=== PATIENT | male | born 1945 | race Caucasian/White ===

== ENCOUNTER → 2019-11-01 11:14 | Outpatient (CLI) | payer MEDICARE, SELFPAY ==
[2019-11-01 12:53] LABS: Absolute Lymphocyte Count 1.54 X10^3/uL (0.83-4.51); Absolute Neutrophil Count 4.2 X10^3/uL (2.0-7.7); Basophil# 0.05 X10^3/uL; Basophil% 0.8 % (0-1); Eosinophil# 0.16 X10^3/uL; Eosinophils% 2.5 % (0-5); Hematocrit 45.8 % (40-54); Lymphocyte # 1.54 X10^3/ul (4.0); Lymphocyte % 23.6 % (19-41); Mean Corp Hgb Conc 32.8 g/dL (32-36); Mean Corpuscular Volume 88.6 fL (80-94); Mean Platelet Vol. 9.5 fl (6.2-12.0); Monocyte# 0.54 X10^3/uL; Monocyte% 8.3 % (0-10); NRBC Flagged by Analyzer 0 % (0-5); Neutrophil # 4.19 X10^3/uL (2.7-7.7); Platelet Count 217 K/mm3 (150-450); RBC Distribution Width CV 13.3 % (11.6-14.6); RBC Distribution Width SD 43.7 fl (35.1-43.9); Red Blood Count 5.17 M/mm3 (4.6-6.2); White Blood Count 6.5 K/mm3 (4.4-11.0)
[2019-11-01 13:38] LABS: ALB/GLOB Ratio 1.1 RATIO (0.9-2.4); AST(SGOT) 24 U/L (15-37); Alanine Aminotransfer ALT/SGPT 28 U/L (16-61); Albumin, Serum 3.9 g/dL (3.2-5.0); Alkaline Phosphatase 96 U/L (45-117); Anion Gap 5 (5-15); BUN 22 mg/dL (7-18); BUN/Creat Ratio 20.6 RATIO (10-20); Calcium,Total 9.4 mg/dL (8.5-10.1); Chloride 104 mmol/L (98-107); Cholesterol 155 mg/dL (200); Creatinine, Serum 1.07 mg/dL (0.70-1.30); EST Glomerular Filtration Rate 72 mL/min (>60); Est Glom Filt Rate - Afr Amer 87 mL/min (>60); Globulin 3.6 g/dL (2.2-4.2); Glucose 91 mg/dL (74-106); High Density Lipoprotein 45 mg/dL; PSA,Total- Diagnostic 9.65 ng/mL (0.0-4.0); Potassium 4.7 mmol/L (3.5-5.1); Protein, Total 7.5 g/dL (6.4-8.2); Sodium Level 138 mmol/L (136-145); Thyroid Stim Hormone (TSH) 1.17 uIU/mL (0.358-3.74); Triglycerides 73 mg/dL; Very Low Density Lipoprotein 15 mg/dL (5-40)
== END ==
PROVIDERS: PCP Internal Medicine; Referring Provider Internal Medicine; Visit Provider Internal Medicine
DX: E78.5 Hyperlipidemia, unspecified (principal); I10 Essential (primary) hypertension; E03.9 Hypothyroidism, unspecified; R97.20 Elevated prostate specific antigen [PSA]; Z95.1 Presence of aortocoronary bypass graft
CPT/HCPCS: 36415; 80053; 80061; 84153; 84443; 85025

== ENCOUNTER → 2020-05-01 10:58 | Outpatient (CLI) | payer MEDICARE, SELFPAY ==
[2020-05-01 09:54] VITALS: BMI 27.9
[2020-05-01 12:07] LABS: Absolute Neutrophil Count 4.6 X10^3/uL (2.0-7.7); Basophil# 0.04 X10^3/uL; Basophil% 0.6 % (0-1); Eosinophil# 0.16 X10^3/uL; Eosinophils% 2.4 % (0-5); Hematocrit 47.2 % (40-54); Hemoglobin 14.9 g/dL (13.0-16.5); Lymphocyte % 18.3 % (19-41); Mean Corp Hgb Conc 31.6 g/dL (32-36); Mean Corpuscular Volume 88.7 fL (80-94); Mean Platelet Vol. 9.5 fl (6.2-12.0); Monocyte# 0.45 X10^3/uL; Monocyte% 6.9 % (0-10); NRBC Flagged by Analyzer 0 % (0-5); Neutrophil # 4.63 X10^3/uL (2.7-7.7); Neutrophil % 70.9 % (47-70); Platelet Count 218 K/mm3 (150-450); RBC Distribution Width CV 13.6 % (11.6-14.6); RBC Distribution Width SD 44.1 fl (35.1-43.9); Red Blood Count 5.32 M/mm3 (4.6-6.2); White Blood Count 6.5 K/mm3 (4.4-11.0)
[2020-05-01 12:23] LABS: Vitamin D,25 Hydroxy 32.8 ng/mL
[2020-05-01 12:36] LABS: AST(SGOT) 21 U/L (15-37); Alanine Aminotransfer ALT/SGPT 27 U/L (16-61); Albumin, Serum 3.7 g/dL (3.2-5.0); Alkaline Phosphatase 108 U/L (45-117); Anion Gap 4 (5-15); BUN 18 mg/dL (7-18); BUN/Creat Ratio 16.1 RATIO (10-20); Calcium,Total 9.2 mg/dL (8.5-10.1); Chloride 103 mmol/L (98-107); Cholesterol 170 mg/dL (200); Creatinine, Serum 1.12 mg/dL (0.70-1.30); EST Glomerular Filtration Rate 68 mL/min (>60); Est Glom Filt Rate - Afr Amer 82 mL/min (>60); Globulin 3.7 g/dL (2.2-4.2); Glucose 93 mg/dL (74-106); High Density Lipoprotein 42 mg/dL; Potassium 4.7 mmol/L (3.5-5.1); Protein, Total 7.4 g/dL (6.4-8.2); Sodium Level 140 mmol/L (136-145); Thyroid Stim Hormone (TSH) 4.87 uIU/mL (0.358-3.74); Triglycerides 108 mg/dL; Very Low Density Lipoprotein 22 mg/dL (5-40)
== END ==
PROVIDERS: PCP Internal Medicine; Referring Provider Internal Medicine; Visit Provider Internal Medicine
DX: E55.9 Vitamin D deficiency, unspecified (principal); I10 Essential (primary) hypertension; K44.9 Diaphragmatic hernia without obstruction or gangrene; R97.20 Elevated prostate specific antigen [PSA]; E78.5 Hyperlipidemia, unspecified; Z95.1 Presence of aortocoronary bypass graft; Z98.890 Other specified postprocedural states
CPT/HCPCS: 36415; 80053; 80061; 82306; 84153; 84443; 85025

== ENCOUNTER → 2020-06-19 14:16 | Outpatient (CLI) | payer MEDICARE, SELFPAY ==
[2020-05-01 09:54] VITALS: BMI 27.9
[2020-06-19 15:47] LABS: Free T3 2.5 pg/mL (2.18-3.98); Thyroid Stim Hormone (TSH) 1.97 uIU/mL (0.358-3.74)
== END ==
PROVIDERS: PCP Internal Medicine; Referring Provider Internal Medicine; Visit Provider Internal Medicine
DX: E03.9 Hypothyroidism, unspecified (principal)
CPT/HCPCS: 36415; 84439; 84443; 84481

== ENCOUNTER → 2020-10-30 10:32 | Outpatient (CLI) | payer MEDICARE, SELFPAY ==
[2020-10-30 12:05] LABS: Absolute Lymphocyte Count 1.41 X10^3/uL (0.83-4.51); Absolute Neutrophil Count 3.9 X10^3/uL (2.0-7.7); Basophil# 0.06 X10^3/uL; Eosinophil# 0.16 X10^3/uL; Eosinophils% 2.6 % (0-5); Hematocrit 48.4 % (40-54); Hemoglobin 15.2 g/dL (13.0-16.5); Lymphocyte # 1.41 X10^3/ul (0.83-4.51); Lymphocyte % 23.2 % (19-41); Mean Corp Hgb Conc 31.4 g/dL (32-36); Mean Corpuscular Hgb 27.7 pg (27.0-32.0); Mean Corpuscular Volume 88.3 fL (80-94); Mean Platelet Vol. 9.5 fl (6.2-12.0); Monocyte# 0.44 X10^3/uL; Monocyte% 7.2 % (0-10); NRBC Flagged by Analyzer 0 % (0-5); Neutrophil # 3.94 X10^3/uL (2.7-7.7); Neutrophil % 64.8 % (47-70); Platelet Count 221 K/mm3 (150-450); RBC Distribution Width CV 13.7 % (11.6-14.6); RBC Distribution Width SD 44.4 fl (35.1-43.9); Red Blood Count 5.48 M/mm3 (4.6-6.2); White Blood Count 6.1 K/mm3 (4.4-11.0)
[2020-10-30 12:33] LABS: ALB/GLOB Ratio 0.9 RATIO (0.9-2.4); AST(SGOT) 19 U/L (15-37); Alanine Aminotransfer ALT/SGPT 24 U/L (16-61); Albumin, Serum 3.5 g/dL (3.2-5.0); Alkaline Phosphatase 84 U/L (45-117); Anion Gap 4 (5-15); BUN 17 mg/dL (7-18); BUN/Creat Ratio 18.6 RATIO (10-20); Chloride 104 mmol/L (98-107); Cholesterol 157 mg/dL (200); Creatinine, Serum 0.92 mg/dL (0.70-1.30); EST Glomerular Filtration Rate 86 mL/min (>60); Est Glom Filt Rate - Afr Amer 104 mL/min (>60); Globulin 3.8 g/dL (2.2-4.2); Glucose 94 mg/dL (74-106); High Density Lipoprotein 47 mg/dL; PSA,Total- Diagnostic 8.92 ng/mL (0.0-4.0); Potassium 4.7 mmol/L (3.5-5.1); Protein, Total 7.3 g/dL (6.4-8.2); Sodium Level 138 mmol/L (136-145); Thyroid Stim Hormone (TSH) 3.08 uIU/mL (0.358-3.74); Triglycerides 76 mg/dL; Very Low Density Lipoprotein 15 mg/dL (5-40)
== END ==
PROVIDERS: PCP Internal Medicine; Referring Provider Internal Medicine; Visit Provider Internal Medicine
DX: I10 Essential (primary) hypertension (principal); E78.5 Hyperlipidemia, unspecified; R97.20 Elevated prostate specific antigen [PSA]
CPT/HCPCS: 36415; 80053; 80061; 84153; 84443; 85025

== ENCOUNTER 2021-05-07 09:58 | Outpatient (CLI) | payer MEDICARE, SELFPAY ==
[2021-05-07 12:08] LABS: Absolute Neutrophil Count 3.7 X10^3/uL (2.0-7.7); Basophil# 0.05 X10^3/uL; Basophil% 0.8 % (0-1); Eosinophil# 0.14 X10^3/uL; Eosinophils% 2.4 % (0-5); Hematocrit 47.3 % (40-54); Hemoglobin 15.3 g/dL (13.0-16.5); Lymphocyte % 25.3 % (19-41); Mean Corp Hgb Conc 32.3 g/dL (32-36); Mean Corpuscular Hgb 28.5 pg (27.0-32.0); Mean Corpuscular Volume 88.1 fL (80-94); Mean Platelet Vol. 9.5 fl (6.2-12.0); Monocyte# 0.49 X10^3/uL; Monocyte% 8.3 % (0-10); NRBC Flagged by Analyzer 0 % (0-5); Neutrophil # 3.71 X10^3/uL (2.7-7.7); Neutrophil % 62.7 % (47-70); Platelet Count 230 K/mm3 (150-450); Red Blood Count 5.37 M/mm3 (4.6-6.2); White Blood Count 5.9 K/mm3 (4.4-11.0)
[2021-05-07 12:34] LABS: Vitamin D,25 Hydroxy 29.5 ng/mL
[2021-05-07 12:50] LABS: ALB/GLOB Ratio 1.1 RATIO (0.9-2.4); AST(SGOT) 23 U/L (15-37); Alanine Aminotransfer ALT/SGPT 28 U/L (16-61); Albumin, Serum 3.8 g/dL (3.2-5.0); Alkaline Phosphatase 91 U/L (45-117); Anion Gap 4 (5-15); BUN 25 mg/dL (7-18); BUN/Creat Ratio 19.2 RATIO (10-20); Calcium,Total 9.5 mg/dL (8.5-10.1); Chloride 104 mmol/L (98-107); Cholesterol 147 mg/dL (200); EST Glomerular Filtration Rate 57 mL/min (>60); Est Glom Filt Rate - Afr Amer 69 mL/min (>60); Globulin 3.5 g/dL (2.2-4.2); Glucose 95 mg/dL (74-106); High Density Lipoprotein 41 mg/dL; PSA,Total- Diagnostic 9.61 ng/mL (0.0-4.0); Potassium 4.9 mmol/L (3.5-5.1); Protein, Total 7.3 g/dL (6.4-8.2); Sodium Level 138 mmol/L (136-145); Triglycerides 76 mg/dL; Very Low Density Lipoprotein 15 mg/dL (5-40)
== END 2021-05-07 23:59 | disposition home or self-care (01) ==
LOC: BIMLAB 09:58
PROVIDERS: PCP Internal Medicine; Referring Provider Internal Medicine; Visit Provider Internal Medicine
DX: I10 Essential (primary) hypertension (principal); E78.5 Hyperlipidemia, unspecified; R97.20 Elevated prostate specific antigen [PSA]; E55.9 Vitamin D deficiency, unspecified; Z95.1 Presence of aortocoronary bypass graft; Z98.890 Other specified postprocedural states
CPT/HCPCS: 36415; 80053; 80061; 82306; 84153; 84443; 85025

== ENCOUNTER → 2021-11-11 | Outpatient (CLI) | payer MEDICARE, SELFPAY ==
[2021-11-11 10:49] LABS: Absolute Lymphocyte Count 1.49 X10^3/uL (0.83-4.51); Absolute Neutrophil Count 3.5 X10^3/uL (2.0-7.7); Basophil# 0.04 X10^3/uL; Basophil% 0.7 % (0-1); Eosinophil# 0.26 X10^3/uL; Eosinophils% 4.4 % (0-5); Hematocrit 46.4 % (40-54); Lymphocyte # 1.49 X10^3/ul (0.83-4.51); Lymphocyte % 25.2 % (19-41); Mean Corp Hgb Conc 32.3 g/dL (32-36); Mean Corpuscular Hgb 28.8 pg (27.0-32.0); Mean Corpuscular Volume 89.2 fL (80-94); Mean Platelet Vol. 9.9 fl (6.2-12.0); Monocyte# 0.55 X10^3/uL; Monocyte% 9.3 % (0-10); NRBC Flagged by Analyzer 0 % (0-5); Neutrophil # 3.54 X10^3/uL (2.7-7.7); Neutrophil % 59.9 % (47-70); Platelet Count 220 K/mm3 (150-450); RBC Distribution Width SD 45.3 fl (35.1-43.9); White Blood Count 5.9 K/mm3 (4.4-11.0)
[2021-11-11 11:27] LABS: ALB/GLOB Ratio 1.1 RATIO (0.9-2.4); AST(SGOT) 23 U/L (15-37); Alanine Aminotransfer ALT/SGPT 24 U/L (16-61); Albumin, Serum 3.7 g/dL (3.2-5.0); Alkaline Phosphatase 79 U/L (45-117); Anion Gap 5 (5-15); BUN 20 mg/dL (7-18); BUN/Creat Ratio 18.3 RATIO (10-20); Calcium,Total 9.3 mg/dL (8.5-10.1); Chloride 105 mmol/L (98-107); Cholesterol 160 mg/dL (200); Creatinine, Serum 1.09 mg/dL (0.70-1.30); EST Glomerular Filtration Rate 70 mL/min (>60); Est Glom Filt Rate - Afr Amer 85 mL/min (>60); Free T3 2.5 pg/mL (2.18-3.98); Globulin 3.5 g/dL (2.2-4.2); Glucose 91 mg/dL (74-106); High Density Lipoprotein 45 mg/dL; Potassium 4.5 mmol/L (3.5-5.1); Protein, Total 7.2 g/dL (6.4-8.2); Sodium Level 140 mmol/L (136-145); T4 Free Direct 1.35 ng/dL (0.76-1.46); Thyroid Stim Hormone (TSH) 2.32 uIU/mL (0.358-3.74); Triglycerides 73 mg/dL; Very Low Density Lipoprotein 15 mg/dL (5-40)
== END | disposition home or self-care (01) ==
PROVIDERS: PCP Internal Medicine; Visit Provider Internal Medicine
DX: I10 Essential (primary) hypertension (principal); I38 Endocarditis, valve unspecified; E78.5 Hyperlipidemia, unspecified; E03.9 Hypothyroidism, unspecified; Z95.1 Presence of aortocoronary bypass graft
CPT/HCPCS: 36415; 80053; 80061; 84439; 84443; 84481; 85025

== ENCOUNTER → 2022-05-06 | Outpatient (CLI) | payer MEDICARE, SELFPAY ==
[2022-05-06 11:31] LABS: Absolute Lymphocyte Count 1.76 X10^3/uL (0.83-4.51); Absolute Neutrophil Count 3.8 X10^3/uL (2.0-7.7); Basophil# 0.05 X10^3/uL; Basophil% 0.8 % (0-1); Eosinophil# 0.23 X10^3/uL; Eosinophils% 3.6 % (0-5); Hemoglobin 14.9 g/dL (13.0-16.5); Lymphocyte # 1.76 X10^3/ul (0.83-4.51); Lymphocyte % 27.5 % (19-41); Mean Corp Hgb Conc 32.4 g/dL (32-36); Mean Corpuscular Hgb 28.6 pg (27.0-32.0); Mean Corpuscular Volume 88.3 fL (80-94); Mean Platelet Vol. 9.2 fl (6.2-12.0); Monocyte# 0.51 X10^3/uL; NRBC Flagged by Analyzer 0 % (0-5); Neutrophil # 3.81 X10^3/uL (2.7-7.7); Neutrophil % 59.3 % (47-70); Platelet Count 213 K/mm3 (150-450); RBC Distribution Width CV 13.3 % (11.6-14.6); RBC Distribution Width SD 43.4 fl (35.1-43.9); Red Blood Count 5.21 M/mm3 (4.6-6.2); White Blood Count 6.4 K/mm3 (4.4-11.0)
[2022-05-06 12:10] LABS: Vitamin D,25 Hydroxy 29.4 ng/mL
[2022-05-06 12:18] LABS: ALB/GLOB Ratio 1.1 RATIO (0.9-2.4); AST(SGOT) 23 U/L (15-37); Alanine Aminotransfer ALT/SGPT 27 U/L (16-61); Albumin, Serum 3.7 g/dL (3.2-5.0); Alkaline Phosphatase 85 U/L (45-117); Anion Gap 4 (5-15); BUN 20 mg/dL (7-18); BUN/Creat Ratio 17.9 RATIO (10-20); Calcium,Total 9.3 mg/dL (8.5-10.1); Chloride 107 mmol/L (98-107); Cholesterol 162 mg/dL (200); Creatinine, Serum 1.12 mg/dL (0.70-1.30); EST Glomerular Filtration Rate 68 mL/min (>60); Est Glom Filt Rate - Afr Amer 82 mL/min (>60); Free T3 2.3 pg/mL (2.18-3.98); Globulin 3.5 g/dL (2.2-4.2); Glucose 101 mg/dL (74-106); High Density Lipoprotein 47 mg/dL; PSA,Total - Annual Screen 9.89 ng/mL (0.00-4.00); Potassium 4.7 mmol/L (3.5-5.1); Protein, Total 7.2 g/dL (6.4-8.2); Sodium Level 142 mmol/L (136-145); T4 Free Direct 1.23 ng/dL (0.76-1.46); Thyroid Stim Hormone (TSH) 2.59 uIU/mL (0.358-3.74); Triglycerides 65 mg/dL; Very Low Density Lipoprotein 13 mg/dL (5-40)
== END | disposition home or self-care (01) ==
LOC: LAB 11:08
PROVIDERS: PCP Internal Medicine; Referring Provider Internal Medicine; Visit Provider Internal Medicine
DX: I38 Endocarditis, valve unspecified (principal); E03.9 Hypothyroidism, unspecified; E55.9 Vitamin D deficiency, unspecified; Z95.1 Presence of aortocoronary bypass graft; Z95.2 Presence of prosthetic heart valve; Z12.5 Encounter for screening for malignant neoplasm of prostate
CPT/HCPCS: 36415; 80053; 80061; 82306; 84153; 84439; 84443; 84481; 85025; G0103

== ENCOUNTER → 2023-05-19 | Outpatient (CLI) | payer MEDICARE, SELFPAY ==
[2023-05-19 11:09] LABS: Absolute Lymphocyte Count 1.41 X10^3/uL (0.83-4.51); Absolute Neutrophil Count 3.2 X10^3/uL (2.0-7.7); Basophil# 0.05 X10^3/uL; Basophil% 0.9 % (0-1); Eosinophil# 0.19 X10^3/uL; Eosinophils% 3.6 % (0-5); Hemoglobin 14.4 g/dL (13.0-16.5); Lymphocyte # 1.41 X10^3/ul (0.83-4.51); Lymphocyte % 26.7 % (19-41); Mean Corp Hgb Conc 31.3 g/dL (32-36); Mean Corpuscular Volume 86.1 fL (80-94); Mean Platelet Vol. 9.2 fl (6.2-12.0); Monocyte% 7.6 % (0-10); NRBC Flagged by Analyzer 0 % (0-5); Neutrophil # 3.19 X10^3/uL (2.7-7.7); Neutrophil % 60.3 % (47-70); Platelet Count 213 K/mm3 (150-450); RBC Distribution Width SD 44.3 fl (35.1-43.9); Red Blood Count 5.34 M/mm3 (4.6-6.2); White Blood Count 5.3 K/mm3 (4.4-11.0)
[2023-05-19 11:45] LABS: Vitamin D,25 Hydroxy 26.3 ng/mL
[2023-05-19 11:51] LABS: AST(SGOT) 20 U/L (15-37); Alanine Aminotransfer ALT/SGPT 17 U/L (16-61); Albumin, Serum 3.6 g/dL (3.2-5.0); Alkaline Phosphatase 82 U/L (45-117); Anion Gap 3 (5-15); BUN 21 mg/dL (7-18); BUN/Creat Ratio 19.1 RATIO (10-20); Calcium,Total 8.8 mg/dL (8.5-10.1); Chloride 107 mmol/L (98-107); Cholesterol 294 mg/dL (200); EST Glomerular Filtration Rate 69 mL/min (>60); Est Glom Filt Rate - Afr Amer 83 mL/min (>60); Free T3 2.2 pg/mL (2.18-3.98); Globulin 3.5 g/dL (2.2-4.2); Glucose 92 mg/dL (74-106); High Density Lipoprotein 44 mg/dL; Potassium 4.2 mmol/L (3.5-5.1); Protein, Total 7.1 g/dL (6.4-8.2); Sodium Level 140 mmol/L (136-145); T4 Free Direct 1.26 ng/dL (0.76-1.46); Thyroid Stim Hormone (TSH) 6.28 uIU/mL (0.358-3.74); Triglycerides 115 mg/dL; Very Low Density Lipoprotein 23 mg/dL (5-40)
== END | disposition home or self-care (01) ==
LOC: LAB 10:49
PROVIDERS: PCP Internal Medicine; Referring Provider Internal Medicine; Visit Provider Internal Medicine
DX: I10 Essential (primary) hypertension (principal); E03.9 Hypothyroidism, unspecified; E55.9 Vitamin D deficiency, unspecified; Z95.2 Presence of prosthetic heart valve; Z98.890 Other specified postprocedural states; Z12.5 Encounter for screening for malignant neoplasm of prostate
CPT/HCPCS: 36415; 80053; 80061; 82306; 84153; 84439; 84443; 84481; 85025; G0103

== ENCOUNTER → 2023-11-23 | Outpatient (CLI) | payer MEDICARE, SELFPAY ==
[2023-11-23 09:50] LABS: Absolute Lymphocyte Count 1.45 X10^3/uL (0.83-4.51); Basophil# 0.05 X10^3/uL; Eosinophil# 0.16 X10^3/uL; Eosinophils% 3.1 % (0-5); Hematocrit 45.9 % (40-54); Hemoglobin 14.5 g/dL (13.0-16.5); Lymphocyte # 1.45 X10^3/ul (0.83-4.51); Lymphocyte % 28.2 % (19-41); Mean Corp Hgb Conc 31.6 g/dL (32-36); Mean Corpuscular Hgb 27.1 pg (27.0-32.0); Mean Corpuscular Volume 85.8 fL (80-94); Mean Platelet Vol. 9.2 fl (6.2-12.0); Monocyte# 0.49 X10^3/uL; Monocyte% 9.5 % (0-10); NRBC Flagged by Analyzer 0 % (0-5); Neutrophil # 2.96 X10^3/uL (2.7-7.7); Neutrophil % 57.4 % (47-70); Platelet Count 213 K/mm3 (150-450); RBC Distribution Width CV 13.9 % (11.6-14.6); RBC Distribution Width SD 43.5 fl (35.1-43.9); Red Blood Count 5.35 M/mm3 (4.6-6.2); White Blood Count 5.2 K/mm3 (4.4-11.0)
[2023-11-23 10:09] LABS: Vitamin D,25 Hydroxy 34.7 ng/mL
[2023-11-23 11:13] LABS: ALB/GLOB Ratio 1.1 RATIO (0.9-2.4); AST(SGOT) 18 U/L (15-37); Alanine Aminotransfer ALT/SGPT 13 U/L (16-61); Albumin, Serum 3.5 g/dL (3.2-5.0); Alkaline Phosphatase 76 U/L (45-117); Anion Gap 6 (5-15); BUN 24 mg/dL (7-18); BUN/Creat Ratio 21.1 RATIO (10-20); Calcium,Total 9.1 mg/dL (8.5-10.1); Chloride 105 mmol/L (98-107); Cholesterol 280 mg/dL (200); Creatinine, Serum 1.14 mg/dL (0.70-1.30); EST Glomerular Filtration Rate 66 mL/min (>60); Est Glom Filt Rate - Afr Amer 80 mL/min (>60); Free T3 2.2 pg/mL (2.18-3.98); Globulin 3.3 g/dL (2.2-4.2); Glucose 101 mg/dL (74-106); High Density Lipoprotein 41 mg/dL; Potassium 4.3 mmol/L (3.5-5.1); Protein, Total 6.8 g/dL (6.4-8.2); Sodium Level 138 mmol/L (136-145); T4 Free Direct 1.29 ng/dL (0.76-1.46); Triglycerides 91 mg/dL; Very Low Density Lipoprotein 18 mg/dL (5-40)
== END | disposition home or self-care (01) ==
LOC: LABSPEC 09:04
PROVIDERS: PCP Internal Medicine; Referring Provider Internal Medicine; Visit Provider Internal Medicine
DX: E03.9 Hypothyroidism, unspecified (principal); I38 Endocarditis, valve unspecified; I10 Essential (primary) hypertension; E78.5 Hyperlipidemia, unspecified; E55.9 Vitamin D deficiency, unspecified; N40.0 Benign prostatic hyperplasia without lower urinary tract symptoms; Z95.1 Presence of aortocoronary bypass graft
CPT/HCPCS: 36415; 80053; 80061; 82306; 84153; 84439; 84443; 84481; 85025

== ENCOUNTER 2023-12-21 06:41 | Day surgery (SDC) | payer MEDICARE, SELFPAY ==
--- NOTE | 2023-12-20 | ESO_PTH ---
PATHOLOGY RESULTS PATIENT: MATHEW VIERA LOC: EN U#:[id number] AGE/SX: 78/M ROOM: RE12/21/[address]: Dr. Meng Kong DO : 1945 BED: DIS: 12/21/2023 SPEC #: [id number] RECD: 12/21/23 12:28 STATUS: MARY REJennifer #: [id number] GREGG: 12/20/23 00:[address]: Meng Kong DEPT: SURGICAL PATHOLOGY RECD BY: Calos Ledesma ENTERED: 12/21/23 12:28 SP TYPE: JOSELINE DORAN DR: Dr. Lucretia Ortiz MD Tissues: Esophagus, NOS Procedures: Special Stain Group I Surgery Specimen Level IV Alcian Blue/PAS (control) HEADER OPERATION: EGD with biopsy, dilatation PRE-OP DIAGNOSIS: Benign esophageal stricture TISSUE SUBMITTED: Distal esophagus biopsy MICROSCOPIC DIAGNOSIS Distal esophagus, biopsy: Fragments of gastroesophageal mucosa with chronic inflammation. Intestinal metaplasia (goblet cell metaplasia) not identified. See comment. 12/22/2023 COMMENT Alcian blue/PAS stain with matched control is used in the evaluation of the specimen. MICROSCOPIC DESCRIPTION Slides are reviewed. GROSS DESCRIPTION Received in fixative is one container labeled with the patient's name and designated Distal esophagus biopsy. The specimen consists of multiple irregular fragments of light hall soft tissue that in aggregate measure 1.5 x 0.4 x 0.1 cm. The specimen is totally submitted in one cassette. 12/21/2023 TC:3 CPT:91612 ,[id number]
[2023-12-21] VITALS (8 sets, daily range): BP systolic 88–155; BP diastolic 61–72; PULSE 61–66; RESP 16–18; TEMP 36.1–36.4; O2SAT 93–97; BMI 29.0
--- OUTSIDE RECORDS SUMMARY | 2023-12-21 06:43 | XMS RPT_ITS | CCD ---
Author Organization [facility] Care Team Providers Care Salt Manager Name Role Phone GONZÁLEZ HARMON M A Unavailable Unavailable GONZÁLEZ HARMON A Unavailable Unavailable SUYAPA HU Unavailable Unavailable TRISTEN BUTLER Primary Care Unavailab TRISTEN Awan Referring Unavailab natalee PROVIDER, UNKNOWN Admitting Unavailable PROVIDER, UNKNOWN Attending Unavailable Tristen Butler MD Primary Care Provider Tristen Butler MD Primary Care Provider Shahnaz Sequeira MD Primary Care Provider [phone] Emelia Krause MDabh Unavailable Jimi GARCIA, Ralf(Historical) Unavailable Anoop GARCIA, Bony Unavailable Anoop GARCIA, Bony Unavailable Jo Ann Oliva MD Unavailable [phone] SHAHNAZ SEQUEIRA Primary Care Unavailable HALEY BUTTS Attending Unavailable SHAHNAZ SEQUEIRA Primary Care Unavailable HALEY BUTTS Referring Unavailable SHAHNAZ SEQUEIRA Consulting Unavailable JO ANN OLIVA MD Attending UnavailJO ANN Cespedes MD Primary Care UnavailJO ANN Cespedes MD Admitting Unavailabl e PROVIDER, UNKNOWN Consulting Unavailable Allergies Allergy Classification Reported Allergen(s) Allergy Type Date of Onset Reaction(s) Facility (7 sources) Penicillins; Translations: [PENICILLINS] Propensity to adverse reactions to drug (disorder) 0 Hives [facility] Repository (1 source) Penicillin Drug Allergy [facility] Repository Medications Current Medications Medication Drug Class(es) Dates Sig (Normalized) Sig (Original) aspirin 81 mg oral tablet (5 sources) Platelet Aggregation Inhibitor, Nonsteroidal Anti-inflammatory Drug take 1 tablet by mouth once daily aspirin 81 MG tablet Indications: Aortic root dilation (HCC) , Ascending aortic aneurysm (HCC) Take 81 mg by mouth daily. 0 Active take 1 tablet by mouth once gonzalez y aspirin, enteric coated (ASPIR-81) 81 mg EC tablet Take 81 mg by mouth once daily. 0 Active Comment on above: Take 81 mg by mouth once daily. hydroCHLOROthiazide 25 mg oral tablet (3 sources) Thiazide Diuretic Start: 2016 take 1 tablet by mouth once daily hydrochlorothiazide (HYDRODIURIL) 25 MG tablet TAKE 1 TABLET BY MOUTH DAILY. 90 Tablet 2 10/24/2016 Active losartan potassium 50 mg oral tablet (5 sources) Angiotensin 2 Receptor Joann Start: 2016 take 1 tablet by mouth once daily losartan (COZAAR) 50 MG tablet Indications: Aortic root dilation (HCC) , Ascending aortic aneurysm (HCC) Take 1 Tablet by mouth daily. 30 Tablet 3 12/06/2016 Active take 1 tablet by mouth once gonzalez y losartan (COZAAR) 25 mg tablet Take 25 mg by mouth once daily. 0 Active Comment on above: Take 25 mg by mouth once daily. 24 hr metoprolol succinate 25 mg extended release oral tablet (5 sources) beta-Adrenergic Joann Start: 12-06-2016 take 1 tablet by mouth once daily metoprolol XL (TOPROL XL) 25 MG XL tablet Indications: Aortic root dilation (HCC) , Ascending aortic aneurysm (HCC) Take 1 Tablet by mouth daily. 30 Tablet 11 12/06/2016 Active take 1 tablet by mouth twice vince ly metoprolol tartrate, short acting, (LOPRESSOR) 25 mg tablet Take 25 mg by mouth twice daily. 0 Active Comment on above: Take 25 mg by mouth twice daily. perflutren lipid microspheres 1.3 mL in NaCl (PF) 0.9% 10 mL injection (DEFINITY) (2 sources) Start: 3 End: 4 perflutren lipid microspheres 1.3 mL in NaCl (PF) 0.9% 10 mL injection (DEFINITY) rosuvastatin calcium 40 mg oral tablet (5 sources) HMG-CoA Reductase Inhibitor Start: 7 take 1 tablet by mouth once daily rosuvastatin (CRESTOR) 40 MG tablet Indications: Hyperlipidemia, unspecified hyperlipidemia type Take 1 Tablet by mouth daily. 30 Tablet 11 12/06/2016 Active take 1 tablet by mouth once gonzalez y rosuvastatin (CRESTOR) 10 mg tablet Take 10 mg by mouth once daily. 0 Active Comment on above: Take 10 mg by mouth once daily. 125 ml sodium chloride 9 mg/ml prefilled syringe (2 sources) Start: 06-07-2022 End: 09-06-2023 sodium chloride 0.9 % (flush) 10 mL (BD POSIFLUSH) Completed/Discontinued Medications Medication Drug Class(es) Dates Sig (Normalized) Sig (Original) atorvastatin 40 mg oral tablet (2 sources) HMG-CoA Reductase Inhibitor take 1 tablet by mouth once daily at bedtime atorvastatin (LIPITOR) 40 mg tablet Take 40 mg by mouth daily at bedtime. 0 Active Comment on above: Take 40 mg by mouth daily at bedtime. levothyroxine sodium 0.125 mg oral tablet (8 sources) l-Thyroxine Start: 03-17-2017 take 1 tablet by mouth once daily levothyroxine (SYNTHROID) 125 mcg tablet Take 1 tablet by mouth once daily. 30 tablet 1 03/17/2017 Active Start: 12-21-2016 take 1 tablet by sam th once daily levothyroxine (SYNTHROID, LEVOTHROID) 112 MCG tablet TAKE 1 TABLET BY MOUTH DAILY. 90 Tablet 1 12/21/2016 Active Start: 11-12-2016 take 1 tablet by sam th once daily levothyroxine (SYNTHROID) 100 MCG tablet Take 1 Tablet by mouth daily. 90 Tablet 3 11/12/2016 Active Comment on above: Take 1 tablet by sam th once daily. nitroglycerin 0.3 mg sublingual tablet (2 sources) Nitrate Vasodilator nitroglyceri n sublingual (NITROSTAT) 0.3 mg SL tablet Dissolve 0.3 mg under the tongue every 5 minutes as needed. 0 Active Comment on above: Dissolve 0.3 mg unde r the tongue every 5 minutes as needed. ubidecarenone (CO Q-10 ORAL) (2 sources) ubidecarenone (C O Q-10 ORAL) Take by mouth. 0 Active Comment on above: Take by mouth. warfarin sodium 4 mg oral tablet (2 sources) Vitamin K Antagonist warfarin (C OUMADIN) 4 mg tablet Take 4 mg by mouth as directed. 0 Active Comment on above: Take 4 mg by mouth a s directed. Problems Active Problems Problem Classification Problem Date Documented Da te Episodic/Chronic Aortic; peripheral; and visceral artery aneurysms (7 sources) Aortic root dilatation; Translations: [Thoracic aortic ectasia] Onset: 06-07-2016 06-07-2016 Chronic Conduction disorders (2 sources) Heart block ; Translations: [Conduction disorder, unspecified] Onset: 03-08-2017 03-17-2017 Chronic Coronary atherosclerosis and other heart disease (3 sources) Coronary arteriosclerosis; Translations: [Atherosclerotic heart disease of [place] coronary artery without angina pectoris] Onset: 03-08-2017 03-17-2017 Chronic Coronary atherosclerosis and other heart disease (1 source) Presence of aortocoronary bypass graft; Translations: [S/P CABG x 2] Onset: 09-17-2022 Episodic Disorders of lipid metabolism (5 sources) Hyperlipidemia; Translations: [Hyperlipidemia, unspecified] Onset: 12-08-1999 05-17-2016 Chronic Essential hypertension (3 sources) Essential hypertension; Translations: [Essential (primary) hypertension] Onset: 03-08-2016 03-08-2016 Chronic Heart valve disorders (6 sources) Aortic valve regurgitation; Translations: [Nonrheumatic aortic (valve) insufficiency] Onset: 12-06-2011 04-09-2021 Chronic Other circulatory disease (1 source) Personal history of other diseases of the circulatory system; Translations: [S/P ascending aortic aneurysm repair] Onset: 09-17-2022 Episodic Residual codes; unclassified (2 sources) History of repair of aortic root; Translations: [Other specified postprocedural states] Episodic Residual codes; unclassified (2 sources) History of repair of ascending aorta; Translations: [Other specified postprocedural states] Episodic Residual codes; unclassified (2 sources) Other specified postprocedural states; Translations: [H/O aortic root repair] Onset: 09-17-2022 Episodic Thyroid disorders (5 sources) Hypothyroidism; Translations: [Hypothyroidism, unspecified] Onset: 12-08-1999 12-15-2016 Chronic Unclassified (1 source) Unknown / UNK(Unknown) Onset: 09-02-2016 Unclassified (2 sources) Transition of care; Translations: [Transition of care performed with sharing of clinical summary] Onset: 03-14-2017 03-17-2017 Unclassified (1 source) Aneurysm of ascending aorta without rupture (HCC); Translations: [Aneurysm of ascending aorta without rupture (HCC)] Onset: 03-17-2017 Past or Other Problems Problem Classification Problem Date Documented Date Episodic/Chronic Acute and unspecified renal failure (2 sources) Acute injury of kidney; Translations: [Acute kidney failure, unspecified] Onset: 03-12-2017 03-17-2017 Episodic Administrative/social admission (2 sources) Discharge status; Translations: [Encounter for administrative examinations, unspecified] Onset: 03-07-2017 03-17-2017 Episodic Complications of surgical procedures or medical care (2 sources) Iatrogenic hypotension; Translations: [Postprocedural hypotension] Onset: 03-08-2017 03-17-2017 Episodic Fluid and electrolyte disorders (2 sources) Hypervolemia; Translations: [Fluid overload, unspecified] Onset: 03-12-2017 03-17-2017 Episodic Other screening for suspected conditions (not mental disorders or infectious disease) (3 sources) Raised prostate specific antigen; Translations: [Elevated prostate specific antigen [PSA]] Onset: 05-30-2003 05-30-2003 Episodic Vee-; endo-; and myocarditis; cardiomyopathy (except that caused by tuberculosis or sexually transmitted disease) (3 sources) Diastolic murmur; Translations: [Endocarditis, valve unspecified] Onset: 11-12-2011 Resolved: 11-12-2016 11-12-2016 Chronic Unclassified (1 source) BRADYCARDIA, COMPLETE HEART BLOCK Onset: 09-02-2016 Unclassified (3 sources) NUTRITION/FUNCTIONAL SCREEN COMPLETED Onset: 12-18-1999 Resolved: 06-16-2001 06-16-2001 Results Test Name Value Interpretation Reference Range Facility CV ECHO [facility] CV ECHO [place] [address] Patient: MATHEW VIERA Phone#: : 1945 Age: 78 Gender: M Pt. Type: Out Account: [id number] Location: [facility] Ordering: JO ANN OLIVA Exam Date: 09/02/2023/8:06 Family Phys: SHAHNAZ SEQUEIRA Charge Code: [id number] Physician: Gordon Order #: [id number] Dose#: PROCEDURE: ECHOCARDIOGRAM WITH DOPPLER AND COLOR FLOW HISTORY: Patient is a 78-year-old male with aortic valve replacement INDICATIONS: asymmetric aseptal hypertrophy COMPARISON: None. TECHNIQUE: A 2-D ultrasound, color spectral Doppler and M-mode evaluation of the heart and great vessels. PATIENT MEASUREMENTS: Height (in.): 67 BSA: 1.89 Weight (lbs.): 170 BP: 165/99 [employer] Inspector: JAYNE M MODE 2D MEASUREMENTS AND CALCULATIONS: LVIDd: 4.35 cm LVIDs: 2.46 cm IVSd: 1.4 cm LVPWd: 1.15 cm LVOT diam: 2.61 cm FS: 43.34 % Ao Root diam: 2.94 cm LA diam: 4.5 cm LA Volume Index: 48.3 ml/m2 LA A4 Area: 27.61 cm2 RA A4 Area: 21.7 cm2 RVDd: 4.83 cm TAPSE: DOPPLER MEASUREMENTS AND CALCULATIONS MITRAL MV E MAX bob: 0.50 m/s MV A MAX bob: 0.57 m/s MV E-A ratio: 0.88 Lat Peak E' Bob 7 cm/sec Septal Peak E' OBB 5 cm/sec E/E' lateral 7.04 E/E' medial 9.5 Continued Report - Page 2 of 3 Patient: MATHEW VIERA Phone#: : 1945 Age: 78 Gender: M Pt. Type: Out Account: [id number] Location: [facility] Ordering: JO ANN OLIVA Exam Date: 09/02/2023/8:06 Family Phys: SHAHNAZ SEQUEIRA Charge Code: [id number] Physician: Gordon Order #: [id number] Dose#: AORTIC Ao V2 max: 1.62 m/s Ao max P.47 mm[Hg] Ao V2 mean: 1.10 m/s Ao mean P.71 mm[Hg] Ao V2 VTI: 35.72 cm JOSS (V Max): 3.11 cm2 JOSS (VTI): 3.12 cm2 LV V1 Max 0.94 m/s LV V1 Max PG 3.56 mm[Hg] LV V1 Mean PG 2.02 mm[Hg] LV V1 mean 0.66 m/s LV V1 VTI 20.93 cm PULMONIC PA V2 Max 0.84 m/s PA Max PG 2.83 mm[Hg] TRICUSPID TR Max Bob 2.22 m/s TR max PG 19.74 mm[Hg] RVSP 23 mm Hg. 2D/M-MODE AND COLOR FLOW LEFT VENTRICLE: There is asymmetric basal septal hypertrophy. Left ventricle is normal in size. Systolic ejection fraction is 55-60%. There are no regional wall motion abnormality seen. Basal anterior wall are inadequately visualized WALL MOTION: 1 - Basal anterior: 7 - Mid anterior: Normal 13 - Apical anterior: Normal. 2 - Basal anteroseptal: Normal. 8 - Mid anteroseptal: Normal. 14 - Apical septal: Normal. 3 - Basal inferoseptal: Normal. 9 - Mid inferoseptal: Normal. 15 - Apical inferior: Normal. 4 - Basal inferior: Normal. 10-Mid inferior: Normal. 16 - Apical lateral: Normal. 5 - Basal inferolateral: Normal. 11-Mid inferolateral: Normal. 6 - Basal anterolateral: Normal. 12-Mid anterolateral: Normal. RIGHT VENTRICLE: Right ventricle is mildly enlarged with mildly reduced systolic function. LEFT ATRIUM: Left atrium is moderately enlarged. RIGHT ATRIUM: Right atrium is mildly enlarged. ATRIAL SEPTUM: There is no large interatrial shunt seen. PFO was not assessed. MITRAL VALVE: Mitral valve appears normal in structure. There is mild regurgitation and no stenosis seen. TRICUSPID VALVE: Tricuspid valve is normal structure. There is mild to moderate regurgitation and no stenosis seen Continued Report - Page 3 of 3 Patient: MATHEW VIERAJaylon Phone#: : 1945 Age: 78 Gender: M Pt. Type: Out Account: [id number] Location: 062 Ordering: JO ANN OLIVA Exam Date: 09/02/2023/8:06 Family Phys: SHAHNAZ SEQUEIRA Charge Code: [id number] Physician: Gordon Order #: [id number] Dose#: AORTIC VALVE: There is a well-seated bioprosthetic aortic valve seen. There is no prosthetic valve regurgitation or stenosis seen PULMONIC VALVE: Pulmonic valve is normal in structure. There is trivial regurgitation and no stenosis seen AORTIC ROOT: Aortic root is normal in size AORTIC ARCH: Inadequately visualized DESC THORACIC AORTA: Inadequately visualized. Doppler shows normal systolic diastolic flow IVC/SVC: IVC is normal in size with more than 50% collapse of inspiration. Estimated atrial pressure is 3 mm Hg. PULMONARY VEINS: There is systolic flow blunting seen. PERICARDIUM: There is no pericardial effusion CONCLUSION: 1. There is asymmetric basal septal hypertrophy seen. Left ventricle is normal in size. Systolic ejection fraction 55-60% with normal wall motion 2. Left atrium is moderately enlarged. Right atrium is mildly enlarged 3. There is mild mitral valve regurgitation seen 4. There is mild to moderate tricuspid valve regurgitation 5. There is a well-seated bioprosthetic aortic valve seen. There is no prosthetic valve stenosis or regurgitation seen. 6. Right ventricle is mildly enlarged with mildly reduced systolic function. 7. Estimated right ventricular systolic (more content not included)... Normal [facility] CNOVon 09-17-2022 [facility] Office Visit (TOMN ) MATHEW VIERA ([id number]) 1945 M Date Time Provider Department 09/17/22 1:30 PM HALEY BUTTS [facility] During your visit today, we recorded the following information about you: Temperature Pulse Blood pressure Weight 98.6 degrees 59/minute 158/86 79.3 kg Height 1.702 m Haley Butts APRN.[facility] 10/11/2022 12:24 PM Signed FOLLOW-UP Aortic Aneurysm and Aortic Repair Patient Type: Established PCP: Shahnaz Sequeira [address] [address] Other Physician: No referring provider defined for this encounter. Patient Mr. Viera returns, now 4 years following the last assessment of his ascending and aortic root Aortic Aneurysm. The patient is asymptomatic. The Echocardiogram reveals normal ventricular function and well functioning valves, including AVR 03/08/2017-- Dr Stone Median sternotomy, aortic root replacement, reimplantation of the coronary arteries and valve replacement with a 29-mm Antonio-Vieira bioprosthesis and a 32-mm Valsalva graft and ascending replacement with a 32-mm Valsalva graft, coronary artery bypass grafting x2 with left internal thoracic artery and left anterior descending artery, reverse saphenous vein graft from the right upper leg to lateral circumflex artery, ligation of left atrial appendage. Endoscopic vein harvest. REVIEW OF SYSTEMS GENERAL: No weight loss, malaise or fevers HEENT: Negative for frequent or significant headaches, No changes in hearing or vision, no nose bleeds or other nasal problems RESPIRATORY: Negative for cough, hemoptysis, wheezing, COPD, dyspnea or shortness of breath CARDIOVASCULAR: Negative for chest pain, leg swelling, CHF or palpitations MUSCULOSKELETAL: Negative for joint pain or swelling, back pain or muscle pain HEMATOLOGY/LYMPHOLOGY : Negative for prolonged bleeding, bruising easily or swollen nodes NEURO: No history of headaches, syncope, paralysis, seizures or tremors ENDOCRINE: Negative for cold or heat intolerance, polyuria, polydipsia and goiter Positive hor hypothyroid All other systems reviewed and are negative. PHYSICAL EXAMINATION: BP 158/86 Pulse (!) 59 Temp 37 ?C (98.6 ?F) (Oral) Ht 170.2 cm (5' 7 ) Wt 79.3 kg (174 lb 12.8 oz) SpO2 97% BMI 27.38 kg/m? General appearance: Well appearing, alert, in no acute distress, well-hydrated, well nourished. Lungs: lungs clear to auscultation. No wheezing, rhonchi, rales Heart: RRR without murmur, gallop, or rubs. No ectopy Abdomen: Abdomen soft, non-tender. Bowel sounds normal. Extremities: No deformities, edema, skin discoloration, clubbing or cyanosis. Good capillary refill. Musculoskeletal: No joint swelling, deformity, or tenderness Neuro: Gait normal. Sensation grossly intact. Impression: The patient is doing well, after the last visit. Plan: He will return to see us on an as needed basis. 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 and she will contact us with any future concerns Haley Butts APRN.[employer] INSPECTOR Medical Decision Making: Problems: Moderate: 2+ stable chronic illnesses Data: Unique test result(s) reviewed: 2 Medical Decision Making Level: 3 - Low Allergies As of Date: 09/17/2022 Noted Allergy Reaction PENICILLINS 09/14/1999 4 - Hives Comments: rash Date Reviewed: 09/17/2022 Reviewed by: Kathleen Juarez Ma - Fully Assessed Primary Visit Diagnosis:Coronary artery disease involving [place] heart without angina pectoris, unspecified vessel or lesion type [I25.10] Other Visit Diagnoses:Aneurysm of ascending aorta without rupture (HCC) [I71.21] H/O aortic root repair [Z98.890] S/P ascending aortic aneurysm repair [Z98.890, Z86.79] S/P AVR (aortic valve replacement) [Z95.2] S/P CABG x 2 [Z95.1] Prescriptions as of 10/11/2022 - atorvastatin (LIPITOR) 40 mg tablet Take 40 mg by mouth daily at bedtime. - losartan (COZAAR) 25 mg tablet Take 25 mg by mouth once daily. - metoprolol tartrate, short acting, (LOPRESSOR) 25 mg tablet Take 25 mg by mouth twice daily. - nitroglycerin sublingual (NITROSTAT) 0.3 mg SL tablet Dissolve 0.3 mg under the tongue every 5 minutes as needed. - ubidecarenone (CO Q-10 ORAL) Take by mouth. - warfarin (COUMADIN) 4 mg tablet Take 4 mg by mouth as directed. - levothyroxine (SYNTHROID) 125 mcg tablet Take 1 tablet by mouth once daily. - aspirin, enteric coated (ASPIR-81) 81 mg EC tablet Take 81 mg by mouth once daily. - rosuvastatin (CRESTOR) 10 mg tablet Take 10 mg by mouth once daily. Facility-Administered Medications as of 10/11/2022 - perflutren lipid microspheres 1.3 mL in NaCl (PF) 0.9% 10 mL injection (DEFINITY) - sodium chloride 0.9 % (flush) 10 mL (BD POSIFLUSH) Problem List As Of Date 09/17/2022 Noted Resolved Pre-op testing [Z01.818] 03/07/2017 03/08/19 (more content not included)... Normal [facility] ECHOon 09-17-2022 Echocardiography Echocardiography Report: Transthoracic Echo [facility] ALISHA-2 Date of service: 09/17/2022 12:38:23 PM SIGNAL REPAIRER HELPER Ordering physician: HALEY BUTTS Indication: AVR/CABG Technologist: Damon Bravo and Addis Bentley Interpreting physician: José Miguel Gentile MD PATIENT: Name: MR. MATHEW VIERA : 1945 Age: 77 years Gender: M Primary rhythm: V. Paced. Height: 170.20 cm BSA: 1.90 m Weight: 76.20 kg BMI: 26.3 kg/m Heart rate 71 bpm Blood pressure 154/68 mmHg Color Doppler was utilized to interrogate the cardiac valves assessed and spectral Doppler was utilized to determine the flow velocities and pressure gradients reported in this exam. MEASUREMENTS: Value Indexed Normal Max aortic dimension 3.8 cm Ao < 3.8 Left atrial volume 56 ml (biplane A-L) 29 ml/m Doroteo <= 34 LV ID (diastole) 3.9 cm (2D) 2.05 cm/m LV ID (systole) 2.3 cm (2D) 1.21 cm/m IVS, leaflet tips 1.5 cm (2D) Posterior wall thickness 1.2 cm (2D) Left ventricular mass 190 g (2D) 100 g/m LV stroke volume 43 ml (2D biplane) LV end diastolic volume 76 ml (2D biplane) 39.9 ml/m 34<=EDVi<75 LV end systolic volume 33 ml (2D biplane) 17.5 ml/m Ejection Fraction 56 % (2D biplane) EF > 52 FINDINGS: LEFT VENTRICLE The left ventricle is normal in size. There is severe septal left ventricular hypertrophy. Left ventricular systolic function is normal. Grade I left ventricular diastolic dysfunction. Mitral annular lateral E/e': 4.8. Mitral annular septal E/e': 7.2. Wall Motion: The apical septal segment is severely hypokinetic. The apical inferior segment and apex are mildly hypokinetic. All remaining scored segments are normal. RIGHT VENTRICLE The right ventricle is normal in size. Right ventricular systolic function is normal. RV systolic tissue Doppler velocity is 16.0 cm/s. Tricuspid annular displacement is 1.4 cm. Estimated right ventricular systolic pressure is likely underestimated due to a weak or incomplete tricuspid regurgitation signal and is, at least, 28 mmHg consistent with normal pulmonary artery pressures. Estimated right atrial pressure is 3 mmHg based on IVC assessment. LEFT ATRIUM The left atrial cavity is normal in size. RIGHT ATRIUM The right atrial cavity is normal in size. Inferior Vena Cava: The inferior vena cava appears normal measuring 1.8 cm. The vessel decreases greater than 50 percent with inspiration. MITRAL VALVE There is trace (trace - 1+) mitral valve regurgitation. There is mild thickening. The pressure half time is 74 msec. The peak mitral E/A ratio is 0.76. The average mitral E/e' ratio is 6.0. The mitral flow deceleration time is 255 msec. TRICUSPID VALVE There is mild (1+) tricuspid valve regurgitation. There is mild thickening. AORTIC VALVE Antonio-Vieira prosthetic valve. There is trace aortic valve regurgitation. The peak gradient is 12 mmHg (peak velocity = 175.3 cm/s). The mean gradient is 6 mmHg. The LVOT mean velocity is 85.4 cm/s. The aortic VTI is 34.1 cm. The mean velocity in the aortic valve is 114.2 cm/s. The dimensionless valve index is 0.73. PULMONIC VALVE There is mild (1+) pulmonic valve regurgitation. There is no thickening. AORTA The visualized aorta is borderline dilated. Measurements - Sinus: 3.8 cm. Mid ascending aorta 3.6 cm. INTERATRIAL SEPTUM There is no evidence of intracardiac shunting as detected by Doppler. PERICARDIUM There is no pericardial effusion. CONCLUSIONS: - Exam indication: AVR/CABG - The left ventricle is normal in size. There is severe septal left ventricular hypertrophy. Left ventricular systolic function is normal. EF = 56 5% (2D biplane) Grade I left ventricular diastolic dysfunction. - The right ventricle is normal in size. Right ventricular systolic function is normal. - The visualized aorta is borderline dilated with a maximal dimension of 3.8 cm. - Antonio-Vieira prosthetic aortic valve. There is trace aortic valve regurgitation. The peak gradient is 12 mmHg, the mean gradient is 6 mmHg and the dimensionless valve index is 0.73. Prior pk/mn gradients: 14/7mmHg. - Mild TR/IN. - Exam was compared with the prior CC echocardiographic exam performed on 10/13/2018, stable to modest improvement in LVEF visually. * * * Final * * * CC Robert Applebaum MD Medical Image : [id number] Normal [facility] Final Surgical Pathology Rep [facility] 03-16-2019 Final Surgical Pathology Report . Pathology Reports Accession: Collected Date/Time: Received Date/Time: Pathologist: [id number] 03/14/2019 08:56 EST 03/15/2019 08:56 EST DO BUCKY RIVERO Final Surgical Pathology Report DIAGNOSIS: ESOPHAGEAL BIOPSIES -- SQUAMOUS MUCOSA WITH ACUTE ESOPHAGITIS AND FOCAL ATYPICAL SQUAMOUS PROLIFERATION. In focal areas, free floating fragments of atypical squamous cells are noted.. This area is small and although this may be reactive in nature, further evaluation is recommended to rule out the superficial portion of a neoplastic process. Case reviewed by Dr. Rain. COMMENT: [facility] - A# [id number] CLINICAL INFORMATION: DIFFICULTY SWALLOWING SOLIDS SPECIMEN: A GE JUNCTION BIOPSY GROSS DESCRIPTION: Received in formalin labeled AR a few white, semitranslucent tissue fragments ranging from minute to 0.4 cm. TS -1 Dictated by Joana ARAGON ([facility]) MICROSCOPIC DESCRIPTION: Slides reviewed. Electronically Signed by Pathology Report verified by [facility] Electronically signed by BUCKY RIVERO DO Sign out Date: 03/16/2019 13:18 Performing Lab: [address] ([place]) Comment on above: Performed By: #### C BC, ADIFF, ANEU, CMP, PBNP, GFR, APTT, TROPI #### [place] [address] Hemoglobin A1con 01-10-2019 HbA1c (Bld) [Mass fraction] 5.4 % Normal 4.3-5.6 [facility] Comment on above: Performed By: #### H BA1C #### [facility] Routine Lab [address] [place], [place] [address] HbA1c (Bld) [Mass fraction] 108 mg/dL Normal [facility] Comment on above: Performed By: #### H BA1C #### [facility] Routine Lab [address] [place], [place] [address] APTTon 08-26-2018 aPTT Coag (Bld) [Time] Heparin IV Normal [facility] ([place]) Comment on above: Performed By: #### C BC, ADIFF, ANEU, CMP, PBNP, GFR, APTT, TROPI #### [address] [address] aPTT Coag (Bld) [Time] 30.7 s Normal 25.0-35.0 [facility] ([place]) Comment on above: Result Comment: For Heparin anticoagulation therapy, the recommended therapeutic range is: 54-77 seconds (APTT Correlation with Anti-Xa therapeutic range of 0.3-0.7 units/ml). PLEASE REFERENCE THE PHARMACY PROTOCOL FOR DOSING. Performed By: #### C BC, ADIFF, ANEU, CMP, PBNP, GFR, APTT, TROPI #### [address] [address] .Auto Diffon 08-25-2018 Ammonia (P) [Mass/Vol] 0.50 10 3/mcL Normal 0.09-1.40 [facility] ([place]) Comment on above: Performed By: #### C BC, ADIFF, ANEU, CMP, PBNP, GFR, APTT, TROPI #### [address] [address] Basophils (Bld) [#/Vol] 0.00 10 3/mcL Normal 0.00-0.27 [facility] ([place]) Comment on above: Performed By: #### C BC, ADIFF, ANEU, CMP, PBNP, GFR, APTT, TROPI #### [address] [address] Basophils/100 WBC (Bld) 0.9 % Normal 0.0-2.5 [facility] ([place]) Comment on above: Performed By: #### C BC, ADIFF, ANEU, CMP, PBNP, GFR, APTT, TROPI #### [address] [address] Eosinophils (Bld) [#/Vol] 0.20 10 3/mcL Normal 0.00-0.65 [facility] ([place]) Comment on above: Performed By: #### C BC, ADIFF, ANEU, CMP, PBNP, GFR, APTT, TROPI #### [address] [address] Eosinophils/100 WBC (Bld) 2.9 % Normal 0.0-6.0 [facility] ([place]) Comment on above: Performed By: #### C BC, ADIFF, ANEU, CMP, PBNP, GFR, APTT, TROPI #### [address] [address] Lymphocytes (Bld) [#/Vol] 1.80 10 3/mcL Normal 0.90-4.32 [facility] ([place]) Comment on above: Performed By: #### C BC, ADIFF, ANEU, CMP, PBNP, GFR, APTT, TROPI #### [address] [address] Lymphocytes/100 WBC (Bld) 33.2 % Normal 20.0-40.0 [facility] ([place]) Comment on above: Performed By: #### C BC, ADIFF, ANEU, CMP, PBNP, GFR, APTT, TROPI #### [address] [address] Monocytes/100 WBC (Bld) 9.4 % Normal 2.0-13.0 [facility] ([place]) Comment on above: Performed By: #### C BC, ADIFF, ANEU, CMP, PBNP, GFR, APTT, TROPI #### [address] [address] Neutrophils/100 WBC (Bld) 53.6 % Normal 50.0-75.0 [facility] ([place]) Comment on above: Performed By: #### C BC, ADIFF, ANEU, CMP, PBNP, GFR, APTT, TROPI #### [address] [address] .GFRon 08-25-2018 GFR >60 Normal [facility] ([place]) Comment on above: Result Comment: GFR Population mean for , Non- Americans Ages 20-29 = 116 mL/min/1.73 sq.m. Ages 30-39 = 107 mL/min/1.73 sq.m. Ages 40-49 = 99 mL/min/1.73 sq.m. Ages 50-59 = 93 mL/min/1.73 sq.m. Ages 60-69 = 85 mL/min/1.73 sq.m. Ages 70+ = 75 mL/min/1.73 sq.m. Chronic Kidney Disease: Less than 60 mL/min/1.73 square meters End Stage Renal Disease: Less than 15 mL/min/1.73 square meters Performed By: #### C BC, ADIFF, ANEU, CMP, PBNP, GFR, APTT, TROPI #### [address] [address] GFR Non- >60 Normal [facility] ([place]) Comment on above: Result Comment: GFR Population mean for , Non- Americans Ages 20-29 = 116 mL/min/1.73 sq.m. Ages 30-39 = 107 mL/min/1.73 sq.m. Ages 40-49 = 99 mL/min/1.73 sq.m. Ages 50-59 = 93 mL/min/1.73 sq.m. Ages 60-69 = 85 mL/min/1.73 sq.m. Ages 70+ = 75 mL/min/1.73 sq.m. Chronic Kidney Disease: Less than 60 mL/min/1.73 square meters End Stage Renal Disease: Less than 15 mL/min/1.73 square meters Performed By: #### C BC, ADIFF, ANEU, CMP, PBNP, GFR, APTT, TROPI #### [address] [address] .NEUABSon 08-25-2018 Neutrophils (Bld) [#/Vol] 3.00 10 3/mcL Normal 2.25-8.10 [facility] ([place]) Comment on above: Performed By: #### C BC, ADIFF, ANEU, CMP, PBNP, GFR, APTT, TROPI #### [address] [address] A1Con 08-25-2018 HbA1c (Bld) [Mass fraction] 5.7 % Normal 4.0-6.0 [facility] ([place]) Comment on above: Performed By: #### C BC, ADIFF, ANEU, CMP, PBNP, GFR, APTT, TROPI #### [place] [address] APTTon 08-25-2018 aPTT Coag (Bld) [Time] Heparin IV Normal [facility] ([place]) Comment on above: Performed By: #### C BC, ADIFF, ANEU, CMP, PBNP, GFR, APTT, TROPI #### [place] [address] aPTT Coag (Bld) [Time] 58.8 s High 25.0-35.0 [facility] ([place]) Comment on above: Result Comment: For Heparin anticoagulation therapy, the recommended therapeutic range is: 54-77 seconds (APTT Correlation with Anti-Xa therapeutic range of 0.3-0.7 units/ml). PLEASE REFERENCE THE PHARMACY PROTOCOL FOR DOSING. Performed By: #### C BC, ADIFF, ANEU, CMP, PBNP, GFR, APTT, TROPI #### [place] [address] BMPon 08-25-2018 Creatinine [Mass/Vol] 1.06 mg/dL Normal 0.60-1.40 [facility] ([place]) Comment on above: Performed By: #### C BC, ADIFF, ANEU, CMP, PBNP, GFR, APTT, TROPI #### [place] [id number] Urea nitrogen/Creatinine [Mass ratio] 17.9 ratio Normal 10.0-22.0 [facility] ([place]) Comment on above: Performed By: #### C BC, ADIFF, ANEU, CMP, PBNP, GFR, APTT, TROPI #### [place] [phone] Calcium [Mass/Vol] 8.2 mg/dL Low 8.4-10.1 [facility] ([place]) Comment on above: Performed By: #### C BC, ADIFF, ANEU, CMP, PBNP, GFR, APTT, TROPI #### [place] [phone] Chloride [Moles/Vol] 107 mmol/L Normal 98-110 [facility] ([place]) Comment on above: Performed By: #### C BC, ADIFF, ANEU, CMP, PBNP, GFR, APTT, TROPI #### [address] [address] CO2 [Moles/Vol] 29 mmol/L Normal 22-32 [facility] ([place]) Comment on above: Performed By: #### C BC, ADIFF, ANEU, CMP, PBNP, GFR, APTT, TROPI #### [address] [address] Electrolyte Balance 6.0 mEq/L Normal 4.0-15.0 [facility] ([place]) Comment on above: Performed By: #### C BC, ADIFF, ANEU, CMP, PBNP, GFR, APTT, TROPI #### [address] [address] Glucose [Mass/Vol] 74 mg/dL Low 82-115 [facility] ([place]) Comment on above: Performed By: #### C BC, ADIFF, ANEU, CMP, PBNP, GFR, APTT, TROPI #### [address] [address] Potassium [Moles/Vol] 3.9 mmol/L Normal 3.5-5.0 [facility] ([place]) Comment on above: Performed By: #### C BC, ADIFF, ANEU, CMP, PBNP, GFR, APTT, TROPI #### [address] [address] Sodium [Moles/Vol] 142 mmol/L Normal 136-145 [facility] ([place]) Comment on above: Performed By: #### C BC, ADIFF, ANEU, CMP, PBNP, GFR, APTT, TROPI #### [address] [address] Urea nitrogen [Mass/Vol] 19.0 mg/dL Normal 8.0-22.0 [facility] ([place]) Comment on above: Performed By: #### C BC, ADIFF, ANEU, CMP, PBNP, GFR, APTT, TROPI #### [address] [address] CBCon 08-25-2018 Erythrocyte distribution width (RBC) [Ratio] 14.3 % Normal 11.5-15.5 [facility] ([place]) Comment on above: Performed By: #### C BC, ADIFF, ANEU, CMP, PBNP, GFR, APTT, TROPI #### [place] [address] Hematocrit (Bld) [Volume fraction] 41.8 % Normal 40.0-52.0 [facility] ([place]) Comment on above: Performed By: #### C BC, ADIFF, ANEU, CMP, PBNP, GFR, APTT, TROPI #### [place] [address] Hemoglobin (Bld) [Mass/Vol] 14.2 G/dL Normal 13.0-17.5 [facility] ([place]) Comment on above: Performed By: #### C BC, ADIFF, ANEU, CMP, PBNP, GFR, APTT, TROPI #### [place] [address] MCH (RBC) [Entitic mass] 29.1 pg Normal 27.0-33.0 [facility] ([place]) Comment on above: Performed By: #### C BC, ADIFF, ANEU, CMP, PBNP, GFR, APTT, TROPI #### [place] [phone] MCHC (RBC) [Mass/Vol] 34.1 G/dL Normal 32.0-36.0 [facility] ([place]) Comment on above: Performed By: #### C BC, ADIFF, ANEU, CMP, PBNP, GFR, APTT, TROPI #### [place] [phone] MCV (RBC) [Entitic vol] 85.4 fL Normal 81.0-100.0 [facility] ([place]) Comment on above: Performed By: #### C BC, ADIFF, ANEU, CMP, PBNP, GFR, APTT, TROPI #### [address] [address] Platelet mean volume (Bld) [Entitic vol] 7.4 fL Normal 6.4-10.5 [facility] ([place]) Comment on above: Performed By: #### C BC, ADIFF, ANEU, CMP, PBNP, GFR, APTT, TROPI #### [place] [phone] Platelets (Bld) [#/Vol] 202 10 3/mcL Normal 150-450 [facility] ([place]) Comment on above: Performed By: #### C BC, ADIFF, ANEU, CMP, PBNP, GFR, APTT, TROPI #### [place] [address] RBC (Bld) [#/Vol] 4.89 10 6/mcL Normal 4.50-6.00 [facility] ([place]) Comment on above: Performed By: #### C BC, ADIFF, ANEU, CMP, PBNP, GFR, APTT, TROPI #### [place] [address] WBC (Bld) [#/Vol] 5.50 10 3/mcL Normal 4.50-10.80 [facility] ([place]) Comment on above: Performed By: #### C BC, ADIFF, ANEU, CMP, PBNP, GFR, APTT, TROPI #### [place] [address] .Auto Diffon 08-24-2018 Ammonia (P) [Mass/Vol] 0.50 10 3/mcL Normal 0.09-1.40 [facility] ([place]) Comment on above: Performed By: #### C BC, ADIFF, ANEU, CMP, PBNP, GFR, APTT, TROPI #### [place] [phone] Basophils (Bld) [#/Vol] 0.00 10 3/mcL Normal 0.00-0.27 [facility] ([place]) Comment on above: Performed By: #### C BC, ADIFF, ANEU, CMP, PBNP, GFR, APTT, TROPI #### [address] [address] Basophils/100 WBC (Bld) 0.7 % Normal 0.0-2.5 [facility] ([place]) Comment on above: Performed By: #### C BC, ADIFF, ANEU, CMP, PBNP, GFR, APTT, TROPI #### [address] [address] Eosinophils (Bld) [#/Vol] 0.10 10 3/mcL Normal 0.00-0.65 [facility] ([place]) Comment on above: Performed By: #### C BC, ADIFF, ANEU, CMP, PBNP, GFR, APTT, TROPI #### [address] [address] Eosinophils/100 WBC (Bld) 2.4 % Normal 0.0-6.0 [facility] ([place]) Comment on above: Performed By: #### C BC, ADIFF, ANEU, CMP, PBNP, GFR, APTT, TROPI #### [address] [address] Lymphocytes (Bld) [#/Vol] 1.70 10 3/mcL Normal 0.90-4.32 [facility] ([place]) Comment on above: Performed By: #### C BC, ADIFF, ANEU, CMP, PBNP, GFR, APTT, TROPI #### [address] [address] Lymphocytes/100 WBC (Bld) 30.5 % Normal 20.0-40.0 [facility] ([place]) Comment on above: Performed By: #### C BC, ADIFF, ANEU, CMP, PBNP, GFR, APTT, TROPI #### [address] [address] Monocytes/100 WBC (Bld) 8.7 % Normal 2.0-13.0 [facility] ([place]) Comment on above: Performed By: #### C BC, ADIFF, ANEU, CMP, PBNP, GFR, APTT, TROPI #### [address] [address] Neutrophils/100 WBC (Bld) 57.7 % Normal 50.0-75.0 [facility] ([place]) Comment on above: Performed By: #### C BC, ADIFF, ANEU, CMP, PBNP, GFR, APTT, TROPI #### [address] [address] .GFRon 08-24-2018 GFR >60 Normal [facility] ([place]) Comment on above: Result Comment: GFR Population mean for , Non- Americans Ages 20-29 = 116 mL/min/1.73 sq.m. Ages 30-39 = 107 mL/min/1.73 sq.m. Ages 40-49 = 99 mL/min/1.73 sq.m. Ages 50-59 = 93 mL/min/1.73 sq.m. Ages 60-69 = 85 mL/min/1.73 sq.m. Ages 70+ = 75 mL/min/1.73 sq.m. Chronic Kidney Disease: Less than 60 mL/min/1.73 square meters End Stage Renal Disease: Less than 15 mL/min/1.73 square meters Performed By: #### C BC, ADIFF, ANEU, CMP, PBNP, GFR, APTT, TROPI #### [address] [address] GFR Non- >60 Normal [facility] ([place]) Comment on above: Result Comment: GFR Population mean for , Non- Americans Ages 20-29 = 116 mL/min/1.73 sq.m. Ages 30-39 = 107 mL/min/1.73 sq.m. Ages 40-49 = 99 mL/min/1.73 sq.m. Ages 50-59 = 93 mL/min/1.73 sq.m. Ages 60-69 = 85 mL/min/1.73 sq.m. Ages 70+ = 75 mL/min/1.73 sq.m. Chronic Kidney Disease: Less than 60 mL/min/1.73 square meters End Stage Renal Disease: Less than 15 mL/min/1.73 square meters Performed By: #### C BC, ADIFF, ANEU, CMP, PBNP, GFR, APTT, TROPI #### [address] [address] .NEUABSon 08-24-2018 Neutrophils (Bld) [#/Vol] 3.10 10 3/mcL Normal 2.25-8.10 [facility] ([place]) Comment on above: Performed By: #### C BC, ADIFF, ANEU, CMP, PBNP, GFR, APTT, TROPI #### [place] [address] APTTon 08-24-2018 aPTT Coag (Bld) [Time] 55.1 s High 25.0-35.0 [facility] ([place]) Comment on above: Result Comment: For Heparin anticoagulation therapy, the recommended therapeutic range is: 54-77 seconds (APTT Correlation with Anti-Xa therapeutic range of 0.3-0.7 units/ml). PLEASE REFERENCE THE PHARMACY PROTOCOL FOR DOSING. Performed By: #### C BC, ADIFF, ANEU, CMP, PBNP, GFR, APTT, TROPI #### [place] [address] aPTT Coag (Bld) [Time] Heparin IV Normal [facility] ([place]) Comment on above: Performed By: #### C BC, ADIFF, ANEU, CMP, PBNP, GFR, APTT, TROPI #### [place] [address] aPTT Coag (Bld) [Time] 57.6 s High 25.0-35.0 [facility] ([place] Comment on above: Result Comment: For Heparin anticoagulation therapy, the recommended therapeutic range is: 54-77 seconds (APTT Correlation with Anti-Xa therapeutic range of 0.3-0.7 units/ml). PLEASE REFERENCE THE PHARMACY PROTOCOL FOR DOSING. Performed By: #### C BC, ADIFF, ANEU, CMP, PBNP, GFR, APTT, TROPI #### [place] [address] aPTT Coag (Bld) [Time] Heparin IV Normal [facility] ([place]) Comment on above: Performed By: #### C BC, ADIFF, ANEU, CMP, PBNP, GFR, APTT, TROPI #### [address] [address] aPTT Coag (Bld) [Time] 71.2 s High 25.0-35.0 [facility] ([place]) Comment on above: Result Comment: For Heparin anticoagulation therapy, the recommended therapeutic range is: 54-77 seconds (APTT Correlation with Anti-Xa therapeutic range of 0.3-0.7 units/ml). PLEASE REFERENCE THE PHARMACY PROTOCOL FOR DOSING. Performed By: #### C BC, ADIFF, ANEU, CMP, PBNP, GFR, APTT, TROPI #### [place] [phone] aPTT Coag (Bld) [Time] Heparin IV Normal [facility] ([place]) Comment on above: Performed By: #### C BC, ADIFF, ANEU, CMP, PBNP, GFR, APTT, TROPI #### [place] [phone] aPTT Coag (Bld) [Time] Heparin IV Normal [facility] ([place]) Comment on above: Performed By: #### C BC, ADIFF, ANEU, CMP, PBNP, GFR, APTT, TROPI #### [place] [phone] aPTT Coag (Bld) [Time] 60.6 s High 25.0-35.0 [facility] ([place]) Comment on above: Result Comment: For Heparin anticoagulation therapy, the recommended therapeutic range is: 54-77 seconds (APTT Correlation with Anti-Xa therapeutic range of 0.3-0.7 units/ml). PLEASE REFERENCE THE PHARMACY PROTOCOL FOR DOSING. Performed By: #### C BC, ADIFF, ANEU, CMP, PBNP, GFR, APTT, TROPI #### [address] [address] CBCon 08-24-2018 Erythrocyte distribution width (RBC) [Ratio] 14.1 % Normal 11.5-15.5 [facility] ([place]) Comment on above: Performed By: #### C BC, ADIFF, ANEU, CMP, PBNP, GFR, APTT, TROPI #### [place] [phone] Hematocrit (Bld) [Volume fraction] 41.7 % Normal 40.0-52.0 [facility] ([place]) Comment on above: Performed By: #### C BC, ADIFF, ANEU, CMP, PBNP, GFR, APTT, TROPI #### [place] [phone] Hemoglobin (Bld) [Mass/Vol] 14.4 G/dL Normal 13.0-17.5 [facility] ([place]) Comment on above: Performed By: #### C BC, ADIFF, ANEU, CMP, PBNP, GFR, APTT, TROPI #### [address] [address] MCH (RBC) [Entitic mass] 29.3 pg Normal 27.0-33.0 [facility] ([place]) Comment on above: Performed By: #### C BC, ADIFF, ANEU, CMP, PBNP, GFR, APTT, TROPI #### [place] [phone] MCHC (RBC) [Mass/Vol] 34.6 G/dL Normal 32.0-36.0 [facility] ([place]) Comment on above: Performed By: #### C BC, ADIFF, ANEU, CMP, PBNP, GFR, APTT, TROPI #### [place] [phone] MCV (RBC) [Entitic vol] 84.8 fL Normal 81.0-100.0 [facility] ([place]) Comment on above: Performed By: #### C BC, ADIFF, ANEU, CMP, PBNP, GFR, APTT, TROPI #### [address] [address] Platelet mean volume (Bld) [Entitic vol] 7.3 fL Normal 6.4-10.5 [facility] ([place]) Comment on above: Performed By: #### C BC, ADIFF, ANEU, CMP, PBNP, GFR, APTT, TROPI #### [place] [phone] Platelets (Bld) [#/Vol] 186 10 3/mcL Normal 150-450 [facility] ([place]) Comment on above: Performed By: #### C BC, ADIFF, ANEU, CMP, PBNP, GFR, APTT, TROPI #### [place] [phone] RBC (Bld) [#/Vol] 4.92 10 6/mcL Normal 4.50-6.00 [facility] ([place]) Comment on above: Performed By: #### C BC, ADIFF, ANEU, CMP, PBNP, GFR, APTT, TROPI #### [place] [address] WBC (Bld) [#/Vol] 5.40 10 3/mcL Normal 4.50-10.80 [facility] ([place]) Comment on above: Performed By: #### C BC, ADIFF, ANEU, CMP, PBNP, GFR, APTT, TROPI #### [place] [address] CMPon 08-24-2018 Albumin/Globulin [Mass ratio] 1.2 {ratio} Normal 0.9-1.6 [facility] ([place]) Comment on above: Performed By: #### C BC, ADIFF, ANEU, CMP, PBNP, GFR, APTT, TROPI #### [place] [address] ALP [Catalytic activity/Vol] 68 U/L Normal 38-126 [facility] ([place]) Comment on above: Performed By: #### C BC, ADIFF, ANEU, CMP, PBNP, GFR, APTT, TROPI #### [place] [address] ALT [Catalytic activity/Vol] 20 U/L Normal 12-55 [facility] ([place]) Comment on above: Performed By: #### C BC, ADIFF, ANEU, CMP, PBNP, GFR, APTT, TROPI #### [place] [address] AST [Catalytic activity/Vol] 16 U/L Normal 8-34 [facility] ([place]) Comment on above: Performed By: #### C BC, ADIFF, ANEU, CMP, PBNP, GFR, APTT, TROPI #### [address] [address] Bili Total 0.7 mg/dL Normal 0.2-1.2 [facility] ([place]) Comment on above: Performed By: #### C BC, ADIFF, ANEU, CMP, PBNP, GFR, APTT, TROPI #### [address] [address] Creatinine [Mass/Vol] 1.06 mg/dL Normal 0.60-1.40 [facility] ([place]) Comment on above: Performed By: #### C BC, ADIFF, ANEU, CMP, PBNP, GFR, APTT, TROPI #### [address] [address] Globulin (S) [Mass/Vol] 2.9 G/dL Normal 1.5-3.8 [facility] ([place]) Comment on above: Performed By: #### C BC, ADIFF, ANEU, CMP, PBNP, GFR, APTT, TROPI #### [address] [address] Protein [Mass/Vol] 6.4 G/dL Normal 6.0-8.5 [facility] ([place]) Comment on above: Performed By: #### C BC, ADIFF, ANEU, CMP, PBNP, GFR, APTT, TROPI #### [address] [address] Urea nitrogen/Creatinine [Mass ratio] 17.9 ratio Normal 10.0-22.0 [facility] ([place]) Comment on above: Performed By: #### C BC, ADIFF, ANEU, CMP, PBNP, GFR, APTT, TROPI #### [address] [address] Albumin [Mass/Vol] 3.5 G/dL Normal 3.2-4.8 [facility] ([place]) Comment on above: Performed By: #### C BC, ADIFF, ANEU, CMP, PBNP, GFR, APTT, TROPI #### [address] [address] Calcium [Mass/Vol] 8.6 mg/dL Normal 8.4-10.1 [facility] ([place]) Comment on above: Performed By: #### C BC, ADIFF, ANEU, CMP, PBNP, GFR, APTT, TROPI #### [address] [address] Chloride [Moles/Vol] 107 mmol/L Normal 98-110 [facility] ([place]) Comment on above: Performed By: #### C BC, ADIFF, ANEU, CMP, PBNP, GFR, APTT, TROPI #### [address] [address] CO2 [Moles/Vol] 29 mmol/L Normal 22-32 [facility] ([place]) Comment on above: Performed By: #### C BC, ADIFF, ANEU, CMP, PBNP, GFR, APTT, TROPI #### [address] [address] Electrolyte Balance 7.0 mEq/L Normal 4.0-15.0 [facility] ([place]) Comment on above: Performed By: #### C BC, ADIFF, ANEU, CMP, PBNP, GFR, APTT, TROPI #### [address] [address] Glucose [Mass/Vol] 78 mg/dL Low 82-115 [facility] ([place]) Comment on above: Performed By: #### C BC, ADIFF, ANEU, CMP, PBNP, GFR, APTT, TROPI #### [address] [address] Potassium [Moles/Vol] 4.1 mmol/L Normal 3.5-5.0 [facility] ([place]) Comment on above: Performed By: #### C BC, ADIFF, ANEU, CMP, PBNP, GFR, APTT, TROPI #### [address] [address] Sodium [Moles/Vol] 143 mmol/L Normal 136-145 [facility] ([place]) Comment on above: Performed By: #### C BC, ADIFF, ANEU, CMP, PBNP, GFR, APTT, TROPI #### [address] [address] Urea nitrogen [Mass/Vol] 19.0 mg/dL Normal 8.0-22.0 [facility] ([place]) Comment on above: Performed By: #### C BC, ADIFF, ANEU, CMP, PBNP, GFR, APTT, TROPI #### [address] [address] LIPIDon 08-24-2018 Cholesterol in HDL [Mass/Vol] 44 mg/dL Normal 40-59 [facility] ([place]) Comment on above: Result Comment: HDL Reference Interval: Less than 40 Low - high risk 60 or above Optimal/lowers risk Performed By: #### C BC, ADIFF, ANEU, CMP, PBNP, GFR, APTT, TROPI #### [address] [address] Cholesterol in LDL [Mass/Vol] 84 mg/dL Normal 0-129 [facility] ([place]) Comment on above: Result Comment: LDL is a calculated result and requires a 12- hr fast. LDL Reference Interval: Less than 100 Optimal 100-129 Near or above optimal 130-159 Borderline high risk 160-189 High risk 190 and above Very high risk Performed By: #### C BC, ADIFF, ANEU, CMP, PBNP, GFR, APTT, TROPI #### [address] [address] Cholesterol [Mass/Vol] 140 mg/dL Normal 50-199 [facility] ([place]) Comment on above: Result Comment: Chol esterol Reference Interval: Less than 200 Desirable 200-239 Borderline high risk 240 and above High risk Performed By: #### C BC, ADIFF, ANEU, CMP, PBNP, GFR, APTT, TROPI #### [address] [address] Triglyceride [Mass/Vol] 62 mg/dL Normal 3-149 [facility] ([place]) Comment on above: Result Comment: Trig lyceride Reference Interval: Less than 150 Normal 150-199 Borderline high risk 200-499 High risk 500 or higher Very high risk Performed By: #### C BC, ADIFF, ANEU, CMP, PBNP, GFR, APTT, TROPI #### [place] [address] TROPIon 08-24-2018 Troponin I.cardiac [Mass/Vol] 0.137 ng/mL High 0.000-0.040 [facility] ([place]) Comment on above: Result Comment: Trop onin I reference ranges (10/29/13): 0.00-0.040 ng/mL Negative and non-diagnostic. >0.040 ng/mL Consistent with cardiac damage, increased clinical risk and possibility of myocardial infarction. Serial measurements, a rise & fall in test results, clinical history, appropriate symptoms and/or ECG changes may help assess possibility of HI. *Other non-acute coronary syndrome conditions such as CHF, myocarditis, pulmonary emboli, sepsis and cardiac surgery could result in myocardial damage and increased troponin levels. Performed By: #### C BC, ADIFF, ANEU, CMP, PBNP, GFR, APTT, TROPI #### [place] [address] TSHon 08-24-2018 TSH Qn 1.120 mcIU/mL Normal 0.360-3.740 [facility] ([place]) Comment on above: Result Comment: Dennys lópez note as of 09/04/16 new pediatric reference intervals were added for this test. Performed By: #### C BC, ADIFF, ANEU, CMP, PBNP, GFR, APTT, TROPI #### [place] [id number] .Auto Diffon 08-23-2018 Ammonia (P) [Mass/Vol] 0.50 10 3/mcL Normal 0.09-1.40 [facility] ([place]) Comment on above: Performed By: #### C BC, ADIFF, ANEU, CMP, PBNP, GFR, APTT, TROPI #### [place] [address] Basophils (Bld) [#/Vol] 0.00 10 3/mcL Normal 0.00-0.27 [facility] ([place]) Comment on above: Performed By: #### C BC, ADIFF, ANEU, CMP, PBNP, GFR, APTT, TROPI #### [address] [address] Basophils/100 WBC (Bld) 0.5 % Normal 0.0-2.5 [facility] ([place]) Comment on above: Performed By: #### C BC, ADIFF, ANEU, CMP, PBNP, GFR, APTT, TROPI #### [address] [address] Eosinophils (Bld) [#/Vol] 0.10 10 3/mcL Normal 0.00-0.65 [facility] ([place]) Comment on above: Performed By: #### C BC, ADIFF, ANEU, CMP, PBNP, GFR, APTT, TROPI #### [address] [address] Eosinophils/100 WBC (Bld) 0.9 % Normal 0.0-6.0 [facility] ([place]) Comment on above: Performed By: #### C BC, ADIFF, ANEU, CMP, PBNP, GFR, APTT, TROPI #### [address] [address] Lymphocytes (Bld) [#/Vol] 1.50 10 3/mcL Normal 0.90-4.32 [facility] ([place]) Comment on above: Performed By: #### C BC, ADIFF, ANEU, CMP, PBNP, GFR, APTT, TROPI #### [address] [address] Lymphocytes/100 WBC (Bld) 17.9 % Low 20.0-40.0 [facility] ([place]) Comment on above: Performed By: #### C BC, ADIFF, ANEU, CMP, PBNP, GFR, APTT, TROPI #### [address] [address] Monocytes/100 WBC (Bld) 5.8 % Normal 2.0-13.0 [facility] ([place]) Comment on above: Performed By: #### C BC, ADIFF, ANEU, CMP, PBNP, GFR, APTT, TROPI #### [address] [address] Neutrophils/100 WBC (Bld) 74.9 % Normal 50.0-75.0 [facility] ([place]) Comment on above: Performed By: #### C BC, ADIFF, ANEU, CMP, PBNP, GFR, APTT, TROPI #### [address] [address] .GFRon 08-23-2018 GFR Non- >60 Normal [facility] ([place]) Comment on above: Result Comment: GFR Population mean for , Non- Americans Ages 20-29 = 116 mL/min/1.73 sq.m. Ages 30-39 = 107 mL/min/1.73 sq.m. Ages 40-49 = 99 mL/min/1.73 sq.m. Ages 50-59 = 93 mL/min/1.73 sq.m. Ages 60-69 = 85 mL/min/1.73 sq.m. Ages 70+ = 75 mL/min/1.73 sq.m. Chronic Kidney Disease: Less than 60 mL/min/1.73 square meters End Stage Renal Disease: Less than 15 mL/min/1.73 square meters Performed By: #### C BC, ADIFF, ANEU, CMP, PBNP, GFR, APTT, TROPI #### [address] [address] GFR >60 Normal [facility] ([place]) Comment on above: Result Comment: GFR Population mean for , Non- Americans Ages 20-29 = 116 mL/min/1.73 sq.m. Ages 30-39 = 107 mL/min/1.73 sq.m. Ages 40-49 = 99 mL/min/1.73 sq.m. Ages 50-59 = 93 mL/min/1.73 sq.m. Ages 60-69 = 85 mL/min/1.73 sq.m. Ages 70+ = 75 mL/min/1.73 sq.m. Chronic Kidney Disease: Less than 60 mL/min/1.73 square meters End Stage Renal Disease: Less than 15 mL/min/1.73 square meters Performed By: #### C BC, ADIFF, ANEU, CMP, PBNP, GFR, APTT, TROPI #### [address] [address] .NEUABSon 08-23-2018 Neutrophils (Bld) [#/Vol] 6.20 10 3/mcL Normal 2.25-8.10 [facility] ([place]) Comment on above: Performed By: #### C BC, ADIFF, ANEU, CMP, PBNP, GFR, APTT, TROPI #### [place] [address] APTTon 08-23-2018 aPTT Coag (Bld) [Time] 122.2 s Critically abnormal 25.0-35.0 [facility] ([place]) Comment on above: Result Comment: For Heparin anticoagulation therapy, the recommended therapeutic range is: 54-77 seconds (APTT Correlation with Anti-Xa therapeutic range of 0.3-0.7 units/ml). PLEASE REFERENCE THE PHARMACY PROTOCOL FOR DOSING. Performed By: #### C BC, ADIFF, ANEU, CMP, PBNP, GFR, APTT, TROPI #### [place] [address] aPTT Coag (Bld) [Time] Heparin SubQ Normal [facility] ([place]) Comment on above: Performed By: #### C BC, ADIFF, ANEU, CMP, PBNP, GFR, APTT, TROPI #### [place] [address] CBCon 08-23-2018 Erythrocyte distribution width (RBC) [Ratio] 14.0 % Normal 11.5-15.5 [facility] ([place]) Comment on above: Performed By: #### C BC, ADIFF, ANEU, CMP, PBNP, GFR, APTT, TROPI #### [place] [address] Hematocrit (Bld) [Volume fraction] 44.3 % Normal 40.0-52.0 [facility] ([place]) Comment on above: Performed By: #### C BC, ADIFF, ANEU, CMP, PBNP, GFR, APTT, TROPI #### [place] [address] Hemoglobin (Bld) [Mass/Vol] 15.0 G/dL Normal 13.0-17.5 [facility] ([place]) Comment on above: Performed By: #### C BC, ADIFF, ANEU, CMP, PBNP, GFR, APTT, TROPI #### [place] [id number] MCH (RBC) [Entitic mass] 29.1 pg Normal 27.0-33.0 [facility] ([place] Comment on above: Performed By: #### C BC, ADIFF, ANEU, CMP, PBNP, GFR, APTT, TROPI #### [place] [address] MCHC (RBC) [Mass/Vol] 33.8 G/dL Normal 32.0-36.0 [facility] ([place] Comment on above: Performed By: #### C BC, ADIFF, ANEU, CMP, PBNP, GFR, APTT, TROPI #### [place] [address] MCV (RBC) [Entitic vol] 86.1 fL Normal 81.0-100.0 [facility] ([place] Comment on above: Performed By: #### C BC, ADIFF, ANEU, CMP, PBNP, GFR, APTT, TROPI #### [place] [id number] Platelet mean volume (Bld) [Entitic vol] 7.0 fL Normal 6.4-10.5 [facility] ([place] Comment on above: Performed By: #### C BC, ADIFF, ANEU, CMP, PBNP, GFR, APTT, TROPI #### [place] [id number] Platelets (Bld) [#/Vol] 206 10 3/mcL Normal 150-450 [facility] ([place] Comment on above: Performed By: #### C BC, ADIFF, ANEU, CMP, PBNP, GFR, APTT, TROPI #### [address] [address] RBC (Bld) [#/Vol] 5.15 10 6/mcL Normal 4.50-6.00 [facility] ([place]) Comment on above: Performed By: #### C BC, ADIFF, ANEU, CMP, PBNP, GFR, APTT, TROPI #### [address] [address] WBC (Bld) [#/Vol] 8.30 10 3/mcL Normal 4.50-10.80 [facility] ([place]) Comment on above: Performed By: #### C BC, ADIFF, ANEU, CMP, PBNP, GFR, APTT, TROPI #### [place] [id number] CMPon 08-23-2018 Albumin/Globulin [Mass ratio] 1.1 {ratio} Normal 0.9-1.6 [facility] ([place] Comment on above: Performed By: #### C BC, ADIFF, ANEU, CMP, PBNP, GFR, APTT, TROPI #### [place] [address] ALP [Catalytic activity/Vol] 74 U/L Normal 38-126 [facility] ([place]) Comment on above: Performed By: #### C BC, ADIFF, ANEU, CMP, PBNP, GFR, APTT, TROPI #### [place] [address] Bili Total 0.7 mg/dL Normal 0.2-1.2 [facility] ([place] Comment on above: Performed By: #### C BC, ADIFF, ANEU, CMP, PBNP, GFR, APTT, TROPI #### [place] [address] Creatinine [Mass/Vol] 0.95 mg/dL Normal 0.60-1.40 [facility] ([place] Comment on above: Performed By: #### C BC, ADIFF, ANEU, CMP, PBNP, GFR, APTT, TROPI #### [place] [address] Globulin (S) [Mass/Vol] 3.4 G/dL Normal 1.5-3.8 [facility] ([place] Comment on above: Performed By: #### C BC, ADIFF, ANEU, CMP, PBNP, GFR, APTT, TROPI #### [address] [address] Protein [Mass/Vol] 7.3 G/dL Normal 6.0-8.5 [facility] ([place]) Comment on above: Performed By: #### C BC, ADIFF, ANEU, CMP, PBNP, GFR, APTT, TROPI #### [address] [address] Urea nitrogen/Creatinine [Mass ratio] 18.9 ratio Normal 10.0-22.0 [facility] ([place] Comment on above: Performed By: #### C BC, ADIFF, ANEU, CMP, PBNP, GFR, APTT, TROPI #### [address] [address] Albumin [Mass/Vol] 3.9 G/dL Normal 3.2-4.8 [facility] ([place]) Comment on above: Performed By: #### C BC, ADIFF, ANEU, CMP, PBNP, GFR, APTT, TROPI #### [address] [address] ALT [Catalytic activity/Vol] 22 U/L Normal 12-55 [facility] ([place] Comment on above: Performed By: #### C BC, ADIFF, ANEU, CMP, PBNP, GFR, APTT, TROPI #### [address] [address] AST [Catalytic activity/Vol] 19 U/L Normal 8-34 [facility] ([place]) Comment on above: Performed By: #### C BC, ADIFF, ANEU, CMP, PBNP, GFR, APTT, TROPI #### [address] [address] Calcium [Mass/Vol] 8.9 mg/dL Normal 8.4-10.1 [facility] ([place]) Comment on above: Performed By: #### C BC, ADIFF, ANEU, CMP, PBNP, GFR, APTT, TROPI #### [address] [address] Chloride [Moles/Vol] 106 mmol/L Normal 98-110 [facility] ([place]) Comment on above: Performed By: #### C BC, ADIFF, ANEU, CMP, PBNP, GFR, APTT, TROPI #### [address] [address] CO2 [Moles/Vol] 26 mmol/L Normal 22-32 [facility] ([place]) Comment on above: Performed By: #### C BC, ADIFF, ANEU, CMP, PBNP, GFR, APTT, TROPI #### [address] [address] Electrolyte Balance 9.0 mEq/L Normal 4.0-15.0 [facility] ([place]) Comment on above: Performed By: #### C BC, ADIFF, ANEU, CMP, PBNP, GFR, APTT, TROPI #### [address] [address] Glucose [Mass/Vol] 85 mg/dL Normal 82-115 [facility] ([place]) Comment on above: Performed By: #### C BC, ADIFF, ANEU, CMP, PBNP, GFR, APTT, TROPI #### [address] [address] Potassium [Moles/Vol] 4.2 mmol/L Normal 3.5-5.0 [facility] ([place] Comment on above: Performed By: #### C BC, ADIFF, ANEU, CMP, PBNP, GFR, APTT, TROPI #### [address] [address] Sodium [Moles/Vol] 141 mmol/L Normal 136-145 [facility] ([place]) Comment on above: Performed By: #### C BC, ADIFF, ANEU, CMP, PBNP, GFR, APTT, TROPI #### [address] [address] Urea nitrogen [Mass/Vol] 18.0 mg/dL Normal 8.0-22.0 [facility] ([place] Comment on above: Performed By: #### C BC, ADIFF, ANEU, CMP, PBNP, GFR, APTT, TROPI #### [address] [address] PBNPon 08-23-2018 Natriuretic peptide B (Bld) [Mass/Vol] 136 pg/mL Normal 0-900 [facility] ([place]) Comment on above: Result Comment: NT-p roBNP results of less than 300 pg/mL effectively rules out acute congestive heart failure with 99% negative predictive value. Performed By: #### C BC, ADIFF, ANEU, CMP, PBNP, GFR, APTT, TROPI #### [address] [address] PROon 08-23-2018 INR Coag (PPP) [Relative time] 1.1 {INR} Normal [facility] ([place]) Comment on above: Result Comment: [employer] (CHEST, 1992, 102:[id number]) recommended therapeutic range for oral anticoagulant therapy is: LOW RISK: Prophylaxis of venous thrombosis INR: 2.0-3.0 Treatment of pulmonary embolism 2.0-3.0 Prevention of systemic embolism 2.0-3.0 HIGH RISK: Mechanical prosthetic valves 2.5-3.5 Performed By: #### P RO, TROPI #### [address] [address] PT Coag (PPP) [Time] 13.0 s Normal 9.0-14.6 [facility] ([place]) Comment on above: Result Comment: Effe ctive 09/05/07, Protime results may be affected by some antibiotics (i.e. Ciprofloxacin, Azithromycin, Bactrim) which may potentiate the action of oral anticoagulants, with further increase in Protime/INR. Performed By: #### P RO, TROPI #### [address] [address] TROPIon 08-23-2018 Troponin I.cardiac [Mass/Vol] 0.144 ng/mL High 0.000-0.040 [facility] ([place]) Comment on above: Result Comment: Trop onin I reference ranges (10/29/13): 0.00-0.040 ng/mL Negative and non-diagnostic. >0.040 ng/mL Consistent with cardiac damage, increased clinical risk and possibility of myocardial infarction. Serial measurements, a rise & fall in test results, clinical history, appropriate symptoms and/or ECG changes may help assess possibility of HI. *Other non-acute coronary syndrome conditions such as CHF, myocarditis, pulmonary emboli, sepsis and cardiac surgery could result in myocardial damage and increased troponin levels. Performed By: #### C BC, ADIFF, ANEU, CMP, PBNP, GFR, APTT, TROPI #### [address] [address] Troponin I.cardiac [Mass/Vol] 0.177 ng/mL High 0.000-0.040 [facility] ([place] Comment on above: Result Comment: Trop onin I reference ranges (10/29/13): 0.00-0.040 ng/mL Negative and non-diagnostic. >0.040 ng/mL Consistent with cardiac damage, increased clinical risk and possibility of myocardial infarction. Serial measurements, a rise & fall in test results, clinical history, appropriate symptoms and/or ECG changes may help assess possibility of HI. *Other non-acute coronary syndrome conditions such as CHF, myocarditis, pulmonary emboli, sepsis and cardiac surgery could result in myocardial damage and increased troponin levels. Performed By: #### C BC, ADIFF, ANEU, CMP, PBNP, GFR, APTT, TROPI #### [place] [address] UAon 08-23-2018 Color (U) Yellow Normal [facility] ([place] Comment on above: Performed By: #### U A #### [place] [address] Glucose (U) [Mass/Vol] Negative Normal Negative [facility] ([place]) Comment on above: Performed By: #### U A #### [place] [id number] Ketones Ql (U) Trace Normal Neg-Trace [facility] ([place] Comment on above: Performed By: #### U A #### [place] [id number] UA Appear Clear Normal Clear [facility] ([place] Comment on above: Performed By: #### U A #### [place] [id number] UA Blood Negative Normal Neg-Trace [facility] ([place] Comment on above: Performed By: #### U A #### [address] [address] UA Leuk Est Negative Normal Negative [facility] ([place] Comment on above: Performed By: #### U A #### [address] [address] UA Nitrite Negative Normal Negative [facility] ([place] Comment on above: Performed By: #### U A #### [place] [address] UA pH 5.5 Normal 5.0 - 8.0 [facility] ([place] Comment on above: Performed By: #### U A #### [place] [address] UA Protein Negative Normal Negative [facility] ([place] Comment on above: Performed By: #### U A #### [place] [address] UA Spec Grav 1.010 Normal 1.006-1.029 [facility] ([place] Comment on above: Performed By: #### U A #### [place] [address] UA Specimen Type Clean Catch Normal [facility] ([place]) Comment on above: Performed By: #### U A #### [place] [address] UA Urobilinogen 0.2 E.U./dL Normal 0.2-1.0 [facility] ([place]) Comment on above: Performed By: #### U A #### [place] [address] Urobilinogen Qn (U) Negative Normal Neg-Trace [facility] ([place]) Comment on above: Performed By: #### U A #### [place] [address] Depart Summaryon 09-04-2016 Depart Summary Normal [facility] Discharge Summaryon 09-05-19 17 Discharge Summary Normal [facility] Inpatient Patient Summaryon 09-04-2016 Inpatient Patient Summary Normal [facility] XR CHEST 2 VIEWSon 7 XR CHEST 2 VIEWS ORIGINALChest 2 view s HISTORY: ICD insertion COMPARISON: None ICD overlies the axillary aspect of the left upper lobe. Wires are at the right atrium and the right ventricular apex. No pneumothorax seen. The heart and pulmonary vessels are normal. No consolidation, atelectasis or pleural fluid seen. Minor degenerative change noted in the spine. IMPRESSION: No postprocedure pneumothorax. Interpreted By: Tristen Tobiasreliminary Report By: Tristen Tobias MDElectronically Signed By: Tristen Tobias MD Dictated Date: 09/04/2016 9:13:03 AM Prelim Date: 09/04/2016 9:13:03 AM Sign Date: 09/04/2016 9:13:52 AM Normal [facility] CBCon 09-03-2016 Basophils/100 WBC Auto (Bld) 0.6 % Normal 0.0-2.5 [facility] Comment on above: Order Comment: JUANJO abdalla Performed By: #### C BC ####[address] [address] Eosinophils/100 leukocytes 3.9 % Normal 0.0-6.0 [facility] Comment on above: Order Comment: JUANJO abdalla Performed By: #### C BC ####[address] [address] Erythrocyte distribution width Auto Ratio (RBC) 13.8 % Normal 11.5-15.5 [facility] Comment on above: Order Comment: JUANJO abdalla Performed By: #### C BC ####[address] [address] Erythrocytes (RBC) 4.29 10 6/mcL Low 4.50-6.00 [facility] Comment on above: Order Comment: JUANJO abdalla Performed By: #### C BC ####[address] [address] Hematocrit (HCT) 37.8 % Low 40.0-52.0 [facility] Comment on above: Order Comment: JUANJO abdalla Performed By: #### C BC ####[address] [address] Hemoglobin mass conc (Bld) 12.7 G/dL Low 13.0-17.5 [facility] Comment on above: Order Comment: AM Dr abdalla Performed By: #### C BC ####[place] [id number] [place] [address] Lymphocytes/100 leukocytes 25.7 % Normal 20.0-40.0 [facility] Comment on above: Order Comment: AM Dr abdalla Performed By: #### C BC ####[facility] [address] [place] [address] MCH 29.6 pg Normal 27.0-33.0 [facility] Comment on above: Order Comment: AM Dr abdalla Performed By: #### C BC ####[place] [id number] [address] [place] [address] MCHC mass conc (RBC) 33.6 G/dL Normal 32.0-36.0 [facility] Comment on above: Order Comment: AM Dr abdalla Performed By: #### C BC ####[address] [address] MCV 88.2 fL Normal 81.0-100.0 [facility] Comment on above: Order Comment: AM Dr abdalla Performed By: #### C BC ####[address] [address] Monocytes/100 leukocytes 8.5 % Normal 2.0-13.0 [facility] Comment on above: Order Comment: AM Dr abdalla Performed By: #### C BC ####[address] [address] Neutrophils 3.80 10 3/mcL Normal 2.00-8.00 [facility] Comment on above: Order Comment: AM Dr abdalla Performed By: #### C BC ####[place] [id number] [place] [address] Neutrophils/100 WBC Auto (Bld) 61.3 % Normal 50.0-75.0 [facility] Comment on above: Order Comment: AM Dr abdalla Performed By: #### C BC ####[place] [id number] [place] [address] Platelet mean volume (PMV) 7.9 fL Normal 6.4-10.5 [facility] Comment on above: Order Comment: AM Dr abdalla Performed By: #### C BC ####[facility], [address] [place] [address] Platelets 197 10 3/mcL Normal 150-450 [facility] Comment on above: Order Comment: AM Dr abdalla Performed By: #### C BC ####[facility], [address] [place] [address] WBC (Leukocytes) 6.20 10 3/mcL Normal 4.50-10.80 [facility] Comment on above: Order Comment: AM Dr abdalla Performed By: #### C BC ####[facility] [address] [place] [address] Comp. Metabolic Panelon 08-21 Alanine aminotransferase (ALT) 21 U/L Normal 12-55 [facility] Comment on above: Order Comment: AM Dr abdalla Performed By: #### C MP ####[address] [address] Alk. Phosphatase 58 U/L Normal 38-126 [facility] Comment on above: Order Comment: AM Dr abdalla Performed By: #### C MP ####[address] [address] Albumin/Globulin Ratio 1.3 {ratio} Normal 0.9-1.6 [facility] Comment on above: Order Comment: JUANJO abdalla Performed By: #### C MP ####[address] [address] Bilirubin (direct) 0.3 mg/dL Normal 0.2-1.2 [facility] Comment on above: Order Comment: AM Dr abdalla Performed By: #### C MP ####[place] [address] [place] [address] Globulin 2.6 G/dL Normal 1.5-3.8 [facility] Comment on above: Order Comment: JUANJO abdalla Performed By: #### C MP ####[place] [phone] [place] [address] T. Protein 5.9 G/dL Low 6.0-8.5 [facility] Comment on above: Order Comment: JUANJO abdalla Performed By: #### C MP ####[facility], [address] [place] [address] Aspartate aminotransferase (AST) 11 U/L Normal 8-34 [facility] Comment on above: Order Comment: AM Dr abdalla Performed By: #### C MP ####[place] [phone] [place] [address] Albumin 3.3 G/dL Normal 3.2-4.8 [facility] Comment on above: Order Comment: AM Dr abdalla Performed By: #### C MP ####[address] [address] BUN/Creatinine Ratio 20.7 mg/mg Normal 10.0-22.0 [facility] Comment on above: Order Comment: AM Dr abdalla Performed By: #### C MP ####[address] [address] Creatinine 1.16 mg/dL Normal 0.60-1.40 [facility] Comment on above: Order Comment: AM Dr abdalla Performed By: #### C MP ####[address] [address] Calcium 9.0 mg/dL Normal 8.4-10.1 [facility] Comment on above: Order Comment: AM Dr abdalla Performed By: #### C MP ####[address] [address] CO2 30 mmol/L Normal 22-32 [facility] Comment on above: Order Comment: AM Dr abdalla Performed By: #### C MP ####[address] [address] Electrolyte Balance 6.0 mEq/L Normal 4.0-15.0 [facility] Comment on above: Order Comment: AM Dr abdalla Performed By: #### C MP ####[address] [address] Glucose mass conc 92 mg/dL Normal 82-115 [facility] Comment on above: Order Comment: AM Dr abdalla Performed By: #### C MP ####[address] [address] Urea nitrogen 24.0 mg/dL High 8.0-22.0 [facility] Comment on above: Order Comment: AM Dr abdalla Performed By: #### C MP ####[facility] [address] [place] [address] Chloride 107 mmol/L Normal 98-110 [facility] Comment on above: Order Comment: AM Dr abdalla Performed By: #### C MP ####[place] [id number] [place] [address] Potassium molar conc 4.5 mmol/L Normal 3.5-5.0 [facility] Comment on above: Order Comment: AM Dr abdalla Performed By: #### C MP ####[place] [address] Sodium 143 mmol/L Normal 136-145 [facility] Comment on above: Order Comment: AM Dr abdalla Performed By: #### C MP ####[place] [address] Glomerular Filtration Rate E stimateon 09-03-2016 eGFR (non-black) mL/min/{1.73_m2} Normal [facility] Comment on above: Order Comment: AM Dr abdalla Performed By: #### G FR ####[place] [address] Result Comment: Floridalma caldera mean GFR = 75 mL/min/1.73 sq.m. for ages 70+ years. Chronic Kidney Disease: Less than 60 mL/min/1.73 square metersEnd Stage Renal Disease: Less than 15 mL/min/1.73 square meters Troponin Ion 09-03-2016 Troponin I.cardiac mass conc ng/mL Normal 0.000-0.040 [facility] Comment on above: Order Comment: AM Dr abdalla Result Comment: Trop onin I reference ranges (10/29/13): 0.00-0.040 ng/mL Negative and non-diagnostic. >0.040 ng/mL Consistent with cardiac damage, increased clinical risk and possibility of myocardial infarction. Serial measurements, a rise & fall in test results, clinical history, appropriate symptoms and/or ECG changes may help assess possibility of HI. *Other non-acute coronary syndrome conditions such as CHF, myocarditis, pulmonary emboli, sepsis and cardiac surgery could result in myocardial damage and increased troponin levels. NOTE: This is a new and more precise Troponin assay started 10-29-13 Performed By: #### T YUN ####[facility], [address] [place] [address] History and Physical (Blank) on 09-02-2016 History and Physical (Blank) Normal [facility] Urinalysison 09-02-2016 Specimen type (u) NOT GIVEN Normal [facility] Comment on above: Order Comment: CBN Performed By: #### U A ####[facility], [address] [place] [address] Bilirubin (total) Negative Normal NEG - TRACE [facility] Comment on above: Order Comment: CBN Performed By: #### U A ####[facility], [address] [place] [address] Glucose mass conc Negative Normal NEGATIVE [facility] Comment on above: Order Comment: CBN Performed By: #### U A ####[facility], [address] [place] [address] Hemoglobin mass conc (Bld) Negative Normal NEG - TRACE [facility] Comment on above: Order Comment: CBN Performed By: #### U A ####[facility], [address] [place] [address] pH of blood 6.0 [pH] Normal 5.0 - 8.0 [facility] Comment on above: Order Comment: CBN Performed By: #### U A ####[facility], [address] [place] [address] Protein Negative Normal NEG - TRACE [facility] Comment on above: Order Comment: CBN Performed By: #### U A ####[facility], [address] [place] [address] Urine, appearance CLEAR Normal CLEAR [facility] Comment on above: Order Comment: CBN Performed By: #### U A ####[facility], [address] [place] [id number] Urine, color YELLOW Normal [facility] Comment on above: Order Comment: CBN Performed By: #### U A ####[facility], [address] [place] [phone] Urine, ketones presence Negative Normal NEG - TRACE [facility] Comment on above: Order Comment: CBN Performed By: #### U A ####[facility], [address] [place] [phone] Urine, nitrite presence Negative Normal NEGATIVE [facility] Comment on above: Order Comment: CBN Performed By: #### U A ####[facility], [address] [place] [address] [phone] Urine, specific gravity 1.010 Normal 1.006-1.029 [facility] Comment on above: Order Comment: CBN Performed By: #### U A ####[facility], [address] [place] [address] Urine, urobilinogen 0.2 {Cole'U}/dL Normal 0.2 - 1. 0 [facility] Comment on above: Order Comment: CBN Performed By: #### U A ####[facility], [address] [place] [address] [phone] WBC (Leukocytes) Negative Normal NEGATIVE [facility] Comment on above: Order Comment: CBN Performed By: #### U A ####[facility], [address] [place] [address] Vital Signs Date Time Vital Sign Value Performing Clinician Chely dc 09-17-2022 13:40-0400 Body height 170.2 cm Haley Butts APRN.TRIMMING INSPECTOR Work Phone: [facility] 09-17-2022 13:40-0400 Body temperature 98.6 [degF] Haley Butts APRN.TRIMMING INSPECTOR Work Phone: [facility] 09-17-2022 13:40-0400 Body weight 79.29 kg Haley Butts APRN.TRIMMING INSPECTOR Work Phone: [facility] 09-17-2022 13:40-0400 Diastolic blood pressure 86 mm[Hg] Haley Butts APRN.TRIMMING INSPECTOR Work Phone: [facility] 09-17-2022 13:40-0400 Heart rate 59 /min Haley Butts APRN.TRIMMING INSPECTOR Work Phone: [facility] 09-17-2022 13:40-0400 SaO2% (BldA) [Mass fraction] 97 % Haley Butts APRN.TRIMMING INSPECTOR Work Phone: [facility] 09-17-2022 13:40-0400 Systolic blood pressure 158 mm[Hg] Haley Butts APRN.TRIMMING INSPECTOR Work Phone: [facility] Encounters Encounter Date Encounter Type Care Provider Facility Start: 09-02-2023 End: 09-02-2023 ambulatory SHAHNAZ SEQUEIRA [facility] Start: 11-13-2022 Letter encounter Tristen phillip MD Work Phone: [facility] Start: 09-17-2022 End: 09-17-2022 ambulatory SHAHNAZ SEQUEIRA Facility:[facility] Start: 09-17-2022 End: 09-17-2022 Patient encounter procedure Haley Butts APRN.TRIMMING INSPECTOR Work Phone: [facility] Comment on above: 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[place] heart without angina pectoris, unspecified vessel or lesion type (Primary Dx); Aneurysm of ascending aorta without rupture (HCC); H/O aortic root repair; S/P ascending aortic aneurysm repair; S/P AVR (aortic valve replacement); S/P CABG x 2 Start: 06-07-2022 Orders Only Haley Butts APRN.TRIMMING INSPECTOR Work Phone: [facility] Comment on above: H/O aortic root repa ir (Primary Dx); S/P ascending aortic aneurysm repair; S/P AVR (aortic valve replacement); S/P CABG x 2; Aneurysm of ascending aorta without rupture (HCC) Start: 05-10-2022 Letter encounter Tristen phillip MD Work Phone: [facility] Start: 11-04-2021 Letter encounter [facility] Start: 12-06-2016 [facility]ulatory [facility] Carlisle [facility] Start: 09-02-2016 Evaluation and management of inpatient GONZÁLEZ HARMON Facility:[facility] Procedures Date Procedure Procedure Detail Performing Clinician Start: 12-06-2016 Ct angiography chest w/contrast/noncontrast TRISTEN BUTLER History of coronary artery bypass grafting S/P CABG x 2 Haley Butts PLASTIC SEWER.TRIMMING INSPECTOR Work Phone: History of coronary artery bypass grafting S/P CABG x 2 Haley Butts PLASTIC SEWER.TRIMMING INSPECTOR Work Phone: Plan of Treatment Date Care Activity Detail Author Start: 11-21-2022 Influenza vaccination Influenza Vacc ine (#1) [facility] Start: 10-22-2022 Influenza vaccination C [facility] Start: 02-21-2022 ADVANCE DIRECTIVE DISCUSSION ADVANCE DIRECTIVE DISCUSSION [facility] Start: 02-21-2022 DEPRESSION ASSESSMENT DEPRESSION ASS ESSMENT [facility] Start: 11-21-2021 Influenza vaccination Influenza Vacc ine (#1) [facility] Start: 03-24-2020 DIABETES SCREEN DIABETES SCREEN [facility] Start: 11-09-2017 Basic metabolic 2000 panel - Serum or Plasma Basic [facility]abolic Panel [facility] Start: 11-09-2017 Creatinine measurement Basic Metabol ic Panel [facility] Start: 11-09-2017 Thyroid stimulating hormone measurement TSH [facility] Start: 04-22-2011 [id number] Start: 2010 Pneumococcal vaccination Pneum ococcal Vaccine(s) (65+ yrs) (1 - PCV) [facility] Start: 2010 PNEUMOCOCCAL: 65+ (1 - PCV) PNEUMOCOCCAL: 65+ (1 - PCV) [facility] Start: 2005 RSV vaccine (optiona l 60+ years) RSV vaccine (optional 60+ years) [facility] Start: 05-04-1995 Shingles (RZV) Vacci ne (1 of 2) Shingles (RZV) Vaccine (1 of 2) [facility] Start: 05-04-1995 SHINGRIX VACCINE (1 of 2) RICHARD GRIX VACCINE (1 of 2) [facility] Start: 1964 Urine microalbumin profile DTA P,TDAP,TD (1 - Tdap) [facility] Start: 05-04-1963 ANNUAL PCP TEAM LYFT DRIVER FRANNY DISEASE VISIT ANNUAL PCP TEAM CHRONIC DISEASE VISIT [facility] Start: 05-04-1963 Hepatitis B surface antibody level LDL CHOLESTEROL [facility] Start: 05-04-1963 Hepatitis C screening Hepatitis C An tibody [facility] Start: 05-04-1963 HEPATITIS C SCREENING HEPATITIS C SC REENING [facility] Start: 05-04-1963 Tetanus + diphtheria + acellular pertussis vaccine (product) Tdap Booster [facility] Start: 1945 COVID-19 Vaccine (#1) COVID-19 Vacci ne (#1) [facility] Start: 1945 COVID-19 Vaccine ( formulation) COVID-19 Vaccine ( formulation) [facility] End: 06-08-2023 Echocardiography ECHO Cardiology Routine H/O aortic root repair S/P ascending aortic aneurysm repair S/P AVR (aortic valve replacement) S/P CABG x 2 Aneurysm of ascending aorta without rupture (HCC) 1 Occurrences starting 06/07/2022 until 06/08/2023 [facility] Work Phone: Comment on above: 1 Occurrences starti ng 06/07/2022 until 06/08/2023 [facility] Payers Date Payer Category Payer Medicare [id number] 2016 Medicare [id number] 2016 Private Health Insurance [id number] 1945 Unknown [id number] 1945 Unknown [id number] Medicare [id number] 00 Social History Date Type Detail Facility Start: 02-02-2016 End: 09-17-2022 Tobacco smoking status NHIS Never smoked tobacco [facility] Start: 02-02-2016 End: 09-17-2022 Tobacco use and exposure Smokeless tobacco non-user [facility] Start: 12-06-2016 Alcohol intake Not Asked [facility] Start: 1945 Sex Assigned At [facility] file [facility] Start: 10-13-2018 End: 09-17-2022 Alcohol intake Current drinker of alcohol (finding) [facility] Start: 09-17-2022 History of Social function [facility] Start: 09-17-2022 Tobacco use panel [facility] National Score (1-10 0), lower number is lower risk 50 [facility] Medical Equipment Procedure Code Equipment Code Equipment Origin al Text Equipment Identifier Dates Graft Gelweave Valsalva 42mm 32mm Gelatin 15cm 32mm Cardiovascular Woven - [id number] Start: 03-08-2017 [place] Thk1.65mm P tfe 4x.5in Cardiovascular Sterile - [id number] Start: 03-08-2017 Patch Thk.2-.4mm Bovine Pericardium Encap 14x9cm Cardiovascular Soft - [id number] Start: 03-08-2017 Comment on above: Description: [id number] Valve Aort 29mm Crp-Ed Thfx - [id number] Start: 03-08-2017 Comment on above: Description: [id number] Goals Date Patient Goal Desired Activity /State Personal health goal Progress note 09-17-2022 Note Date & Type Note Facility 09-17-2022 Note HNO ID: [id number] Author: Haley Butts APRN.TRIMMING INSPECTOR Service: ? Author Type: Clinical Nurse Specialist Type: Progress Notes Filed: 10/11/2022 12:24 PM Note Text: FOLLOW-UP Aortic Aneurysm and Aortic Repair Patient Type: Established PCP: Shahnaz Sequeira [address] [address] Other Physician: No referring provider defined for this encounter. Patient Mr. Viera returns, now 4 years following the last assessment of his ascending and aortic root Aortic Aneurysm. The patient is asymptomatic. The Echocardiogram reveals normal ventricular function and well functioning valves, including AVR 03/08/2017-- Dr Stone Median sternotomy, aortic root replacement, reimplantation of the coronary arteries and valve replacement with a 29-mm Antonio-Vieira bioprosthesis and a 32-mm Valsalva graft and ascending replacement with a 32-mm Valsalva graft, coronary artery bypass grafting x2 with left internal thoracic artery and left anterior descending artery, reverse saphenous vein graft from the right upper leg to lateral circumflex artery, ligation of left atrial appendage. Endoscopic vein harvest. REVIEW OF SYSTEMS GENERAL: No weight loss, malaise or fevers HEENT: Negative for frequent or significant headaches, No changes in hearing or vision, no nose bleeds or other nasal problems RESPIRATORY: Negative for cough, hemoptysis, wheezing, COPD, dyspnea or shortness of breath CARDIOVASCULAR: Negative for chest pain, leg swelling, CHF or palpitations MUSCULOSKELETAL: Negative for joint pain or swelling, back pain or muscle pain HEMATOLOGY/LYMPHOLOGY: Negative for prolonged bleeding, bruising easily or swollen nodes NEURO: No history of headaches, syncope, paralysis, seizures or tremors ENDOCRINE: Negative for cold or heat intolerance, polyuria, polydipsia and goiter Positive hor hypothyroid All other systems reviewed and are negative. PHYSICAL EXAMINATION: BP 158/86 Pulse (!) 59 Temp 37 ?C (98.6 ?F) (Oral) Ht 170.2 cm (5' 7 ) Wt 79.3 kg (174 lb 12.8 oz) SpO2 97% BMI 27.38 kg/m? General appearance: Well appearing, alert, in no acute distress, well-hydrated, well nourished. Lungs: lungs clear to auscultation. No wheezing, rhonchi, rales Heart: RRR without murmur, gallop, or rubs. No ectopy Abdomen: Abdomen soft, non-tender. Bowel sounds normal. Extremities: No deformities, edema, skin discoloration, clubbing or cyanosis. Good capillary refill. Musculoskeletal: No joint swelling, deformity, or tenderness Neuro: Gait normal. Sensation grossly intact. Impression: The patient is doing well, after the last visit. Plan: He will return to see us on an as needed basis. 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 FOLLOW-UP Aortic Aneurysm and Aortic Repair Patient Type: Established PCP: Shahnaz Sequeira [address] [place] [address] Other Physician: No referring provider defined for this encounter. Patient Mr. Viera returns, now 4 years following the last assessment of his ascending and aortic root Aortic Aneurysm. The patient is asymptomatic. The Echocardiogram reveals normal ventricular function and well functioning valves, including AVR 03/08/2017-- Dr Stone Median sternotomy, aortic root replacement, reimplantation of the coronary arteries and valve replacement with a 29-mm Antonio-Vieira bioprosthesis and a 32-mm Valsalva graft and ascending replacement with a 32-mm Valsalva graft, coronary artery bypass grafting x2 with left internal thoracic artery and left anterior descending artery, reverse saphenous vein graft from the right upper leg to lateral circumflex artery, ligation of left atrial appendage. Endoscopic vein harvest. REVIEW OF SYSTEMS GENERAL: No weight loss, malaise or fevers HEENT: Negative for frequent or significant headaches, No changes in hearing or vision, no nose bleeds or other nasal problems RESPIRATORY: Negative for cough, hemoptysis, wheezing, COPD, dyspnea or shortness of breath CARDIOVASCULAR: Negative for chest pain, leg swelling, CHF or palpitations MUSCULOSKELETAL: Negative for joint pain or swelling, back pain or muscle pain HEMATOLOGY/LYMPHOLOGY: Negative for prolonged bleeding, bruising easily or swollen nodes NEURO: No history of headaches, syncope, paralysis, seizures or tremors ENDOCRINE: Negative for cold or heat intolerance, polyuria, polydipsia and goiter Positive hor hypothyroid All other systems reviewed and are negative. PHYSICAL EXAMINATION: BP 158/86 Pulse (!) 59 Temp 37 C (98.6 F) (Oral) Ht 170.2 cm (5' 7 ) Wt 79.3 kg (174 lb 12.8 oz) SpO2 97% BMI 27.38 kg/m General appearance: Well appearing, alert, in no acute distress, well-hydrated, well nourished. Lungs: lungs clear to auscultation. No wheezing, rhonchi, rales Heart: RRR without murmur, gallop, or rubs. No ectopy Abdomen: Abdomen soft, non-tender. Bowel sounds normal. Extremities: No deformities, edema, skin discoloration, clubbing or cyanosis. Good capillary refill. Musculoskeletal: No joint swelling, deformity, or tenderness Neuro: Gait normal. Sensation grossly intact. Impression: The patient is doing well, after the last visit. Plan: He will return to see us on an as needed basis. 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 Combined blood loss and dilutional Assessment: No signs of acute loss. H/H 10.5/31.1 Plan: Multivitamin. Transfuse PRBC as needed Atelectasis 03/10/2017 03/14/2017 Overview: A/P: Bibasilar. On 1 L NC. OOB, wean o2, and pep Pre-op testing 03/07/2017 03/08/2017 Overview: Images from the original note were not included. [facility] PRE[facility] CHECKLIST Surgeon: Marshall Stone M.D. Informed Consent Completed: Yes STS Score: umsupported CAD: Yes - CAD on Problem List: Yes Is intended procedure a CABG: Yes - is a beta joann ordered? Yes H & P completed: Yes PA/LAT: Completed CT: Completed MRI: N/A LE US: N/A Cath: Yes - reviewed: Yes Echo:Pending EKG: Completed EF %: 60 PI's: Completed Carotid: N/A Mapping: N/A Dental: Completed PFT's: N/A Recent Labs 03/07/17 0751 WBC 5.92 HB 14.0 HCT 43.3 PLT 235 INR 1.0 CREAT 1.13 UA: pending HCG:N/A ABO/ABO Confirmed: NO pending Blood ordered: Yes SA Swab: Yes - results: N/A PCN allergic Last Dose of Anticoagulation: Aspirin 81 mg cont Op Note: N/A Pacemaker Check: Yes, 03/07/17 Consults: none DM: No Cardiac Surgical prep: N/A SIGNATURE: Lavinia Argueta CNP CHECKED BY: NOAH DATE of SERVICE: 03/07/2017 TIME of SERVICE: 3:41 PM documented as of this encounter (statuses as of 06/07/2022) [facility] History of Past illness Narrative 03-12-2017 Note Date & Type Note Facility 03-12-2017 History of Past i llness Narrative Problem Noted Date Diagnosed Date Resolved Date Postoperative anemia 03/12/2017 018 Overview: History: S/p OHS. Combined blood loss and dilutional Assessment: No signs of acute loss. H/H 10.5/31.1 Plan: Multivitamin. Transfuse PRBC as needed Atelectasis 03/10/2017 03/14/2017 Overview: A/P: Bibasilar. On 1 L NC. OOB, wean o2, and pep Pre-op testing 03/07/2017 03/08/2017 Overview: Images from the original note were not included. [facility] PRE[facility]OP CHECKLIST Surgeon: Marshall Stone M.D. Informed Consent Completed: Yes STS Score: umsupported CAD: Yes - CAD on Problem List: Yes Is intended procedure a CABG: Yes - is a beta joann ordered? Yes H & P completed: Yes PA/LAT: Completed CT: Completed MRI: N/A LE US: N/A Cath: Yes - reviewed: Yes Echo:Pending EKG: Completed EF %: 60 PI's: Completed Carotid: N/A Mapping: N/A Dental: Completed PFT's: N/A Recent Labs 03/07/17 0751 WBC 5.92 HB 14.0 HCT 43.3 PLT 235 INR 1.0 CREAT 1.13 UA: pending HCG:N/A ABO/ABO Confirmed: NO pending Blood ordered: Yes SA Swab: Yes - results: N/A PCN allergic Last Dose of Anticoagulation: Aspirin 81 mg cont Op Note: N/A Pacemaker Check: Yes, 03/07/17 Consults: none DM: No Cardiac Surgical prep: N/A SIGNATURE: Lavinia Argueta CNP CHECKED BY: NOAH DATE of SERVICE: 03/07/2017 TIME of SERVICE: 3:41 PM documented as of this encounter (statuses as of 10/11/2022) [facility] Evaluation note Note Date & Type Note Facility Evaluation note Diagnosis H/O aortic root repair- Primary Personal history of surgery to heart and great vessels, presenting hazards to health S/P ascending aortic aneurysm repair Other postprocedural status S/P AVR (aortic valve replacement) Heart valve replaced by other means S/P CABG x 2 Postsurgical aortocoronary bypass status Aneurysm of ascending aorta without rupture (HCC) documented in this encounter [facility] Evaluation note Note Date & Type Note Facility Evaluation note Diagnosis Coronary artery disease involving [place] heart without angina pectoris, unspecified vessel or lesion type- Primary Aneurysm of ascending aorta without rupture (HCC) H/O aortic root repair Personal history of surgery to heart and great vessels, presenting hazards to health S/P ascending aortic aneurysm repair Other postprocedural status S/P AVR (aortic valve replacement) Heart valve replaced by other means S/P CABG x 2 Postsurgical aortocoronary bypass status documented in this encounter [facility] Reason for referral (narrative) Outpatient Procedure (Routine) - Pending Review Note Date & Type Note Facility Reason for referral (narrati ve) Specialty Diagnoses / Procedures Referred By Contac t Referred To Contact [facility] Diagnoses H/O aortic root repair S/P ascending aortic aneurysm repair S/P AVR (aortic valve replacement) S/P CABG x 2 Aneurysm of ascending aorta without rupture (HCC) Procedures ECHO ECHO TTHRC R-T 2D W/WOM-MODE COMPL SPEC&COLR D Sigmund, Haley, PLASTIC SEWER.TRIMMING INSPECTOR [address] [place] [address] [facility] [place] [place] [address] [place] [address] Referral ID Status Reason Start Date Expiration Date Visits Requested Visits Authorized [id number] Pending Review Auto-Generat ed Referral 06/07/2022 06/07/2023 1 1 [facility] Summary Purpose Family History No Family History Records FoundNo Family History Records FoundNo Family History Records FoundNo Family History Records FoundNo Family History Records FoundNo Family History Records Found Advance Directives No Advanced Directives Records FoundNo Advanced Directives Records FoundNo Advanced Directives Records FoundNo Advanced Directives Records FoundNo Advanced Directives Records FoundNo Advanced Directives Records Found Additional Source Comments (unrecognized sect ion and content) No Status Records FoundNo Status Records FoundNo Status Records FoundNo Status Records FoundNo Status Records FoundNo Status Records Found INFORMATION SOURCE (unrecogn ized section and content) DATE CREATED AUTHOR 08/17/2017 [employer] DATE CREATED AUTHOR AUTHOR'S ORGANIZ ATION 01/10/2019 [facility] DATE CREATED AUTHOR AUTHOR'S ORGANIZ ATION 03/16/2019 [place] [facility] ([place]) DATE CREATED AUTHOR AUTHOR'S ORGANIZ ATION 04/03/2021 [facility] DATE CREATED AUTHOR AUTHOR'S ORGANIZ ATION 10/12/2022 [facility] DATE CREATED AUTHOR AUTHOR'S ORGANIZ ATION 09/06/2023 [facility] Care Teams (unrecognized sec tion and content) Salt Manager Relationship Specialty Start Date End Date Tristen Butler MD [address] [place], [place] PCP - General 04/06/1998 Salt Manager Relationship Specialty Start Date End Date Tristen Butler MD [address] [place], [place] PCP - General 04/06/1998 Salt Manager Relationship Specialty Start Date End Date Shahnaz Sequeira MD PCP - General Internal Medicine 03/08/17 Ralf Krause MD Referring Cardiology 03/03/18 Ralf Krause(Historical)MD [address] [place] [id number] Physician Cardiology 10/16/18 Bony Davalos MD [address] [place], [place] [id number] Primary Staff Physician Cardiology 05/09/18 Salt Manager Relationship Specialty Start Date End Date Shahnaz Sequeira MD PCP - General Internal Medicine 03/08/17 Bony Davalos MD Primary Staff Physician Cardiology 05/09/18 [place] [address] [place] [address] [address] [employer] Cardiology 09/17/22 Salt Manager Relationship Specialty Start Date End Date Tristen Butler MD [address] [place] [phone] PCP - General 04/06/1998 Source Comments (unrecognize d section and content) In the event this informatio n is protected by the Federal Confidentiality of Alcohol and Drug Abuse Patient Records regulations: The Federal rules restrict any use of the information to criminally investigate or prosecute any alcohol or drug abuse patient.[facility] the event this information is protected by the Federal Confidentiality of Alcohol and Drug Abuse Patient Records regulations: The Federal rules restrict any use of the information to criminally investigate or prosecute any alcohol or drug abuse patient.[facility] FOR RECORDS PERTAINING TO PATIENTS WHO ARE OR HAVE BEEN ENROLLED IN A CHEMICAL DEPENDENCY/SUBSTANCEABUSE PROGRAM, SOME INFORMATION MAY BE OMITTED. This clinical summary was aggregated from multiple sources. Caution should be exercised in using it in the provision of clinical care. This summary normalizes information from multiple sources, and as a consequence, information in this document may materially change the coding, format and clinical context of patient data. In addition, data may be omitted in some cases. CLINICAL DECISIONS SHOULD BE BASED ON THE PRIMARY CLINICAL RECORDS. [facility]. provides no warranty or guarantee of the accuracy or completeness of information in this document.
--- NOTE | 2023-12-21 07:21 | PRE.ANES_ITS ---
ASA Classification* ASA Classification ASA Classification: 3 (SEE WRITTEN PRE ANESTHESIA RECORD FOR FULL ASSESSMENT) Assessment & Plan Anesthesia* Anesthesia Assessment Anesthesia Assessment: Discussed sedation and/or anesthesia options, risks, benefits, and alternatives with patient/parents/legal guardian/POA. Questions invited. The patient/parents/legal guardian/POA seems to understand and agrees to proceed with anesthesia plan. Reviewed the physical assessment, medical history, allergy history and patient home medications list prior to surgery/procedure/anesthetic and documented any changes. Performed airway and anesthesia risk assessments. Anesthesia Type Anesthesia Type: MAC (SEE WRITTEN PRE ANESTHESIA RECORD FOR FULL ASSESSMENT) Anesthesia Focused Assessment* Temperature: 97 F Pulse Rate: 64 Blood Pressure: 155/69 Respiratory Rate: 16 Pulse Ox: 97 Airway Assessment Mouth opens: >3 cm Mallampati Score: II Focused Labs Anesthesia Preop lab: CBC WBC 5.2 K/mm3 (4.4-11.0) 11/23/23 09:12 RBC 5.35 M/mm3 (4.6-6.2) 11/23/23 09:12 Hgb 14.5 g/dL (13.0-16.5) 11/23/23 09:12 Hct 45.9 % (40-54) 11/23/23 09:12 Plt Count 213 K/mm3 (150-450) 11/23/23 09:12 CHEMISTRY Potassium 4.3 mmol/L (3.5-5.1) 11/23/23 09:12 Sodium 138 mmol/L (136-145) 11/23/23 09:12 BUN 24 mg/dL (7-18) H 11/23/23 09:12 Creatinine 1.14 mg/dL (0.70-1.30) 11/23/23 09:12 Glucose 101 mg/dL (74-106) 11/23/23 09:12 TSH 7.750 uIU/mL (0.358-3.740) H 11/23/23 09:12 COAG Pre-Assessment Diagnosis/Proposed Procedure Planned Operative Procedure(s): EGD Anesthesia History 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 When Was Last Pacemaker Check QUESTION #4 FULL TEXT: You/Your Family Experience fever (hyperthermia) with Anesthesia Last Oral Intake Last Oral intake: Last Oral Intake NPO since 05:45 12/21/23 06:56 Meds taken in AM with sips of water? Meds patient instructed to take am of surgery PONV PONV - aerobics instructor: PONV - aerobics instructor Female No 12/20/23 10:15 HX of Motion Sickness No 12/20/23 10:15 HX of N/V After Surgery No 12/20/23 10:15 Non-Smoker Yes 12/20/23 10:15 Duration of Surgery greater No 12/20/23 10:15 than 60 minutes Number of Risk Factors 1 12/20/23 10:15 PONV Score Low Risk 12/20/23 10:15 Height & Weight Height & Weight: Anesthesia: Height & Weight Height 5 ft 6 in 12/21/23 06:56 Weight: 81.647 kg 12/21/23 06:56 Body Mass Index (BMI) 29.0 12/21/23 06:56 Respiratory Assessment Respiratory Assessment - aerobics instructor: Respiratory Tract Infection Hx - aerobics instructor Hx Respiratory Tract Infection No 12/20/23 10:15 STOP Sleep Apnea STOP Sleep Apnea - aerobics instructor: STOP Sleep Apnea - aerobics instructor Hx Hypertension Yes: CONTROLLED WITH MEDS 12/20/23 10:15 Hx Sleep Apnea No 12/20/23 10:15 CPAP BIPAP Do you snore loudly (louder No 12/20/23 10:15 than talking or can be heard Do you often feel tired/ No 12/20/23 10:15 fatigued/ sleepy during daytime? Has anyone observed you stop No 12/20/23 10:15 breathing during sleep? STOP Results Negative 12/20/23 10:15 QUESTION #5 FULL TEXT : Do you snore loudly (louder than talking or can be heard through closed doors)? 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 Specify any problems Hx of Preganancy in last 3 N/A 12/20/23 10:15 Months Nurse Filling Out Transfusion [email or web address] 12/20/23 10:15 & Questions: Date: 12/20/23 12/20/23 10:15 Time: 10:17 12/20/23 10:15 Patient unable to answer at this time (ie. confused, unrespo /Reproduction History /Reproductive History - aerobics instructor: /Reproductive Hx- aerobics instructor Hx Now Gestational Age (in weeks): EDC: Hx Hx Para Hx Section SAB PFSH Medical History Thyroid disease Non-smoker History of echocardiogram Cardiology follow-up encounter History of pacemaker Rising PSA level Dysphagia Gastric ulcer Diverticulosis Hiatal hernia Heart valve disease Other and unspecified hyperlipidemia Essential hypertension Home Medications ?Medication ?Instructions ?Recorded ?Last Taken ?Type aspirin 81 mg tablet,delayed 81 mg PO DAILY 10/26/19 12/17/23 History release (Adult Low Dose Aspirin) metoprolol tartrate 25 mg tablet 25 mg PO BID 10/26/19 12/20/23 07:00 History nitroglycerin 0.3 mg sublingual 0.3 mg sublingual Q5M PRN chest 05/01/20 Unknown History tablet pain esomeprazole magnesium 20 mg 20 mg PO QDAY #30 caps 11/18/23 Unknown Rx capsule,delayed release levothyroxine 112 mcg tablet 112 mcg PO DAILY #90 tabs 11/23/23 12/21/23 Rx losartan 25 mg tablet 25 mg PO DAILY 12/20/23 Unknown History Allergy/AdvReac Type Severity Reaction Status Date / Time Penicillins Allergy Mild rash Verified 12/21/23 06:54 Family History Mother Heart disease Surgical History Hx of aortic root repair S/P CABG (coronary artery bypass graft) Social History Smoking Status: Never smoker alcohol intake: never substance use type: does not use Review of Systems (Anesthesia) ROS Narrative System reviewed and no additional complaints, except as documented.
--- NOTE | 2023-12-21 07:47 | HP.PCM_ITS ---
History and Physical Date of Admission: 12/21/23 MATHEW VIERA, is a 78 M who presents to the office today for establishment with [facility] as his original GI doctor is now retired. He reports a history of esophageal dilation, for a benign stricture located at the gastroesophageal junction, twice in a 4 week period for sequential increase in dilation circumference. History of medium-sized hiatal hernia. Reviewing labs from April of this year, he has hyperlipidemia, increasing PSA, and elevated TSH. Additional medical history of AVR, CABG, HTN, hypothyroid, gastric ulcer. He denies needing this office to address any of his lab results as he is following up with PCP next week. He denies difficulty urinating. He reports 2-3 x/month food getting stuck in his esophagus. If he's unable to flush down the foodstuff with liquids, he can elicit an emesis. He denies difficulty chewing, heartburn, reflux, abdominal pain, bloating, excessive belching and flatus. Reports BMs daily with complete evacuation. He denies hematochezia and melena. He reports an occasional external hemorrhoid without complications. ROS Const Constitutional: No anorexia, body ache, chills, excessive sweating, fatigue, fever(s), frequent falls, headache(s), decreased energy, malaise, night sweats, snoring, weakness, weight change, sleep problems, abnormal sleep pattern, change in appetite or other Eyes Eyes: No change in vision ENT ENT: Positive for difficulty swallowing; No abnormal hearing or headache(s) Resp Respiratory: No cough or snoring Cardio Cardiology: No chest pain at rest, chest pain with exertion or excessive sweating Gastro GI: Positive for difficulty swallowing; No abdominal pain, belching, bloating, change in bowel habits, change in stool character, coffee ground emesis, constipation, cramping, diarrhea, heartburn, feeling full early, excessive flatus, incontinent of stools, Vomiting blood/hematemesis, Blood in stool, loose stools, Black,tarry stools, nausea/dyspepsia, pain with swallowing, vomiting or other Genitourinary Male: No difficulty urinating or blood in urine Musc Musculoskeletal: No joint pain Skin Skin: No yellowing of the eye or itchy eyes Neuro Neurology: No abnormal hearing, weakness, frequent falls or headache(s) Psych Psychiatric: No abnormal sleep pattern, No anxiety, No change in appetite and No depression Endo Endocrine: No cold intolerance, excessive sweating, fatigue, heat intolerance or weight change Aller/Imm Allergy/Immunologic: No food intolerance or itchy eyes Wilberto/Lymp Hematologic/Lymphatic: No easy bleeding or easy bruising Exam Const General: cooperative, healthy appearing, comfortable and no acute distress [facility] Head: normal to inspection Ears: hearing grossly normal bilaterally Nose: external nose normal Face and sinus: normal facial exam and face symmetric Eyes General: appearance normal, both eyes and all related structures Sclera: sclerae normal Neck Neck: normal visual inspection and full ROM Neck mass: No Chest Chest palpation & inspection: normal inspection of the chest Resp Effort & Inspection: normal respiratory effort, able to speak in complete sentences and symmetric chest movement GI Inspection: normal to inspection Skin General: no rashes or lesions noted Neuro General: patient alert, patient awake and patient oriented x3 Cognition: normal cognition Speech: speech normal Gait: normal gait Extrem General: full ROM Psych Appearance: well kempt Mental Status: mental status grossly normal Mood: congruent mood Affect: normal affect Speech and Movement: speech and movement normal Attitude: cooperative Thought Process: normal Judgment: judgment good Assessment and Plan Assessment and Plan (1) Benign esophageal stricture: Status: Acute Plan: MATHEW VIERA, is a 78 M who presents to the office today for establishment with [facility] as his original GI doctor is now retired. He reports a history of esophageal dilation, for a benign stricture located at the gastroesophageal junction. States unknown date of last colonoscopy, and is refusing to schedule one with his EGD as he sees no blood and has no problems with his abdomen or BMs. Has a history of statin use, but took self off d/t reading unfavorable reports of their ineffectiveness for specific cause of high cholesterol. States he'd like to limit his drug intake as he is active and eats somewhat healthily. He refused referral to urology in regard to the elevating PSA, states no trouble voiding and not seeing any blood in his urine. * schedule EGD w/dilation * office follow-up in 1 year * call with pathology report I have examined the patient and the H&P has been reviewed. There are no clinical changes since date of exam.
--- NOTE | 2023-12-21 08:18 | OP.EGD_ITS ---
Patient Name: Omari Moreno Procedure Date: 12/21/2023 7:50 AM Date of : 1945 Age: 78 Procedure: Upper GI endoscopy Indications: Dysphagia Providers: DO Oscar Shepard MD: Lucretia rOtiz Medicines: Monitored Anesthesia Care Patient Profile: Patient has symptoms of dysphagia with solids and chronic heartburn. This is a 78 year old male. Complications: No immediate complications. Procedure: Pre-Anesthesia Assessment: - Prior to the procedure, a History and Physical was performed, and patient medications and allergies were reviewed. The patient is competent. The risks and benefits of the procedure and the sedation options and risks were discussed with the patient. All questions were answered and informed consent was obtained. Patient identification and proposed procedure were verified by the physician in the pre-procedure area. Mental Status Examination: alert and oriented. Airway Examination: normal oropharyngeal airway and neck mobility. Respiratory Examination: clear to auscultation. CV Examination: normal. Prophylactic Antibiotics: The patient does not require prophylactic antibiotics. Prior Anticoagulants: The patient has taken no anticoagulant or antiplatelet agents except for NSAID medication. ASA Grade Assessment: II - A patient with mild systemic disease. After reviewing the risks and benefits, the patient was deemed in satisfactory condition to undergo the procedure. The anesthesia plan was to use monitored anesthesia care (MAC). Immediately prior to administration of medications, the patient was re-assessed for adequacy to receive sedatives. The heart rate, respiratory rate, oxygen saturations, blood pressure, adequacy of pulmonary ventilation, and response to care were monitored throughout the procedure. The physical status of the patient was re-assessed after the procedure. After obtaining informed consent, the endoscope was passed under direct vision. Throughout the procedure, the patient's blood pressure, pulse, and oxygen saturations were monitored continuously. The Endoscope was introduced through the mouth, and advanced to the second part of duodenum. The upper GI endoscopy was accomplished without difficulty. The patient tolerated the procedure well. 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 The maximum longitudinal extent of these mucosal changes was 3 cm in length. Mucosa was biopsied with a cold forceps for histology in a targeted manner at intervals of 1 cm in the lower third of the esophagus. One specimen bottle was sent to pathology. Verification of patient identification for the specimen was done. Estimated blood loss was minimal. One benign-appearing, intrinsic moderate stenosis was found 38 to 40 cm from the incisors. This stenosis measured 3 cm (in length). The stenosis was traversed. A guidewire was placed and the scope was withdrawn. Dilation was performed with a Savary dilator with no resistance at 60 Fr. The dilation site was examined and showed moderate improvement in luminal narrowing. A medium-sized hiatal hernia was present. The exam of the stomach was otherwise normal. No gross lesions were noted in the first portion of the duodenum. 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 Biopsied. - Benign-appearing esophageal stenosis. Dilated. - Medium-sized hiatal hernia. - No gross lesions in the first portion of the duodenum. Recommendation: - Discharge patient to home. - Resume previous diet. - Continue present medications. - Await pathology results. - Repeat upper endoscopy in 1 year for surveillance. Procedure Code(s): --- Professional --- 09108, Esophagogastroduodenoscopy, flexible, transoral; with insertion of guide wire followed by passage of dilator(s) through esophagus over guide wire 04417, 59,51, Esophagogastroduodenoscopy, flexible, transoral; with biopsy, single or multiple CPT copyright 2021 [employer]. All rights reserved. The codes documented in this report are preliminary and upon hospital coder review may be revised to meet current compliance requirements. Meng Kong DO 12/21/2023 8:18:11 AM This report has been signed electronically. Number of Addenda: 0 Note Initiated On: 12/21/2023 7:50 AM
--- NOTE | 2023-12-21 08:19 | OP.CCLET_ITS ---
12/21/2023 Lucretia Ortiz [facility] [address] [place] [address] Re : Upper GI endoscopy procedure for Omari Moreno Dear Dr. Ortiz This procedure was performed on Thursday, December 21, 2023. My impressions and recommendations are as follows: Impressions : - Esophageal mucosal changes secondary to established short-segment Martinez's disease. Biopsied. - Benign-appearing esophageal stenosis. Dilated. - Medium-sized hiatal hernia. - No gross lesions in the first portion of the duodenum. Recommendations : - Discharge patient to home. - Resume previous diet. - Continue present medications. - Await pathology results. - Repeat upper endoscopy in 1 year for surveillance. My findings are described in the full procedure note, which is enclosed. If I can be of further assistance, please feel free to contact me at . Sincerely, Meng Kong, 12/21/2023 8:18:11 AM This report has been signed electronically.
--- NOTE | 2023-12-21 08:24 | PCM.POST.ANE ---
Anesthesia: Postop Eval I Current Vital Signs Temperature: 97.6 F Pulse Rate: 66 Blood Pressure: 97/63 Respiratory Rate: 16 Pulse Ox: 93 Oxygen Delivery Method: Room Air Assessment Airway patent: Yes Spontaneous unlabored respirations: Yes Mental status: Asleep nausea: No Vomiting: No Anesthesia Complication: No Fluid Hydration Crystalloid volume administer (ml): 30 Total IV fluid infused: 30 Progress Note Anesthesia document: Postop Eval 1 completed: Yes
--- NOTE | 2023-12-21 08:30 | PCM.POSTANE2 ---
Anesthesia Postop Eval I Sum Postop Eval Completion status Anesthesia document: Postop Eval 1 completed: Yes Anesthesia Postop Eval I Summary Anesthesia Postop Eval I Summary: Anesthesia Postop Eval I: Assessment Summary Airway patent Yes 12/21/23 08:24 [email or web address] Spontaneous unlabored Yes 12/21/23 08:24 [email or web address] respirations Mental status Asleep 12/21/23 08:24 [email or web address] nausea No 12/21/23 08:24 [email or web address] Vomiting No 12/21/23 08:24 [email or web address] Anesthesia Postop Eval I: Fluid Summary Crystalloid volume administer 30 12/21/23 08:24 [email or web address] (ml) Colloids volume administered ( ml) Blood Product volume administered (ml) Total IV fluid infused 30 12/21/23 08:24 [email or web address] Anesthesia Postop Eval I: Summary Notes Anesthesia Complication No 12/21/23 08:24 [email or web address] Anesthesia Complication Comment: Post-operative progress note Anesthesia: Postop Eval II Evaluation Mental status: Awake Pain Level: 0 nausea: No Vomiting: No
== END 2023-12-21 09:04 | disposition home or self-care (01) ==
LOC: EN 06:42 → AC 06:42
PROVIDERS: PCP Internal Medicine; Referring Provider Internal Medicine; Visit Provider Internal Medicine Gastroenterology
PROC: 0DJ08ZZ Inspection of Upper Intestinal Tract, Via Natural or Artificial Opening Endoscopic (ICD-10-PCS; CPT 43235; principal; 2023-12-21 07:40)
DX: K22.2 Esophageal obstruction (principal); R13.10 Dysphagia, unspecified; K22.70 Barrett's esophagus without dysplasia; K44.9 Diaphragmatic hernia without obstruction or gangrene; I10 Essential (primary) hypertension; E03.9 Hypothyroidism, unspecified; Z79.82 Long term (current) use of aspirin; Z79.899 Other long term (current) drug therapy; Z95.0 Presence of cardiac pacemaker
CPT/HCPCS: 43248; 43239; 88305; 88312; A4216; C1769; J2405

== ENCOUNTER → 2024-05-24 | Outpatient (CLI) | payer MEDICARE, SELFPAY ==
[2024-05-24 10:29] LABS: Absolute Lymphocyte Count 1.42 X10^3/uL (0.83-4.51); Basophil# 0.06 X10^3/uL; Basophil% 0.8 % (0-1); Eosinophil# 0.28 X10^3/uL; Eosinophils% 3.9 % (0-5); Hemoglobin 14.6 g/dL (13.0-16.5); Lymphocyte # 1.42 X10^3/ul (0.83-4.51); Lymphocyte % 19.5 % (19-41); Mean Corp Hgb Conc 32.4 g/dL (32-36); Mean Corpuscular Hgb 27.4 pg (27.0-32.0); Mean Corpuscular Volume 84.4 fL (80-94); Mean Platelet Vol. 9.7 fl (6.2-12.0); Monocyte% 6.9 % (0-10); NRBC Flagged by Analyzer 0 % (0-5); Neutrophil # 4.98 X10^3/uL (2.7-7.7); Neutrophil % 68.5 % (47-70); Platelet Count 207 K/mm3 (150-450); RBC Distribution Width CV 14.7 % (11.6-14.6); RBC Distribution Width SD 44.9 fl (35.1-43.9); Red Blood Count 5.33 M/mm3 (4.6-6.2); White Blood Count 7.3 K/mm3 (4.4-11.0)
[2024-05-24 12:07] LABS: ALB/GLOB Ratio 1.4 RATIO (0.9-2.4); AST(SGOT) 23 U/L (<=37); Alanine Aminotransfer ALT/SGPT 12 U/L (<=46); Albumin, Serum 4.2 g/dL (3.4-4.8); Alkaline Phosphatase 88 U/L (40-129); Anion Gap 10 (5-15); BUN 17 mg/dL (4-19); BUN/Creat Ratio 16.4 RATIO (10-20); Calcium,Total 9.4 mg/dL (7.6-11.0); Carbon Dioxide 25.6 mmol/L (21.0-32.0); Chloride 105 mmol/L (98-108); Cholesterol 294 mg/dL (<=200); Creatinine, Serum 1.06 mg/dL (0.70-1.20); EST Glomerular Filtration Rate 71 (>60); Free T3 2.3 pg/mL (2.18-3.98); Globulin 2.9 g/dL (2.2-4.2); Glucose 91 mg/dL (70-99); High Density Lipoprotein 43 mg/dL; Low Density Lipoprotein Calc. 230 mg/dL; Magnesium 2.1 mg/dL (1.5-2.2); PSA,Total- Diagnostic 9.91 ng/mL (0.00-4.00); Potassium 4.5 mmol/L (3.3-5.1); Protein, Total 7.1 g/dL (5.9-8.4); Sodium Level 141 mmol/L (133-145); Total Bilirubin 0.57 mg/dL (0.00-1.30); Triglycerides 109 mg/dL; Very Low Density Lipoprotein 22 mg/dL (5-40); cholesterol:hdl ratio screen 6.92
== END | disposition home or self-care (01) ==
PROVIDERS: PCP Internal Medicine; Referring Provider Internal Medicine; Visit Provider Internal Medicine
DX: I10 Essential (primary) hypertension (principal); E78.5 Hyperlipidemia, unspecified; E03.9 Hypothyroidism, unspecified; E55.9 Vitamin D deficiency, unspecified; N40.0 Benign prostatic hyperplasia without lower urinary tract symptoms
CPT/HCPCS: 36415; 80053; 80061; 82306; 83735; 84153; 84439; 84443; 84481; 85025